=== PATIENT | male | born 1980 | race Caucasian/White ===

== ENCOUNTER → 2017-07-06 10:21 | Outpatient (CLI) | payer OTHER, SELFPAY ==
[2017-07-06 12:28] LABS: Absolute Lymphocyte Count 1.79 X10^3/ul (0.83-4.51); Absolute Neutrophil Count 5.5 X10^3/uL (2.0-7.7); Basophil# 0.03 X10^3/uL; Basophil% 0.4 % (0-1); Eosinophil# 0.05 X10^3/uL; Eosinophils% 0.6 % (0-5); Hematocrit 47.1 % (40-54); Hemoglobin 16.4 g/dl (13.0-16.5); Lymphocyte # 1.79 X10^3/ul (4.0); Lymphocyte % 22.7 % (19-41); Mean Corp Hgb Conc 34.8 g/gl (32-36); Mean Corpuscular Hgb 31.1 pg (27.0-32.0); Mean Corpuscular Volume 89.4 fL (80-94); Mean Platelet Vol. 9.9 fl (6.2-12.0); Monocyte# 0.47 X10^3/uL; Monocyte% 5.9 % (0-10); Neutrophil # 5.54 X10^3/uL (2.7-7.7); Neutrophil % 70.1 % (47-70); Platelet Count 193 K/mm3 (150-450); RBC Distribution Width CV 12.9 % (11.6-14.6); RBC Distribution Width SD 41.7 fl (35.1-43.9); Red Blood Count 5.27 M/mm3 (4.6-6.2); White Blood Count 7.9 K/mm3 (4.4-11.0)
[2017-07-06 12:36] LABS: POSITIVE COUNT NO; POSITIVE DIFFERENTIAL NO; POSITIVE MORPHOLOGY NO
[2017-07-06 12:41] LABS: Anion Gap 6 (5-15); BUN 9 mg/dL (7-18); BUN/Creat Ratio 9.6 RATIO (10-20); Chloride 108 mmol/L (98-107); Creatinine, Serum 0.94 mg/dL (0.70-1.30); EST Glomerular Filtration Rate 96 mL/min (>60); Est Glom Filt Rate - Afr Amer 116 mL/min (>60); Glucose 107 mg/dL (74-106); Potassium 4.1 mmol/L (3.5-5.1); Sodium Level 141 mmol/L (136-145); Thyroid Stim Hormone (TSH) 1.35 uIU/mL (0.358-3.74)
== END ==
PROVIDERS: Family Provider Family Medicine; PCP Family Medicine; Visit Provider Family Medicine
DX: I10 Essential (primary) hypertension (principal)
CPT/HCPCS: 36415; 80048; 84443; 85025

== ENCOUNTER → 2017-08-24 15:48 | Outpatient (CLI) | payer OTHER, SELFPAY ==
[2017-08-24 17:53] LABS: Absolute Lymphocyte Count 1.76 X10^3/ul (0.83-4.51); Absolute Neutrophil Count 6.9 X10^3/uL (2.0-7.7); Basophil# 0.03 X10^3/uL; Basophil% 0.3 % (0-1); Eosinophil# 0.03 X10^3/uL; Eosinophils% 0.3 % (0-5); Hematocrit 46.1 % (40-54); Hemoglobin 16.1 g/dl (13.0-16.5); Lymphocyte # 1.76 X10^3/ul (4.0); Mean Corp Hgb Conc 34.9 g/gl (32-36); Mean Corpuscular Hgb 31.4 pg (27.0-32.0); Mean Corpuscular Volume 89.9 fL (80-94); Mean Platelet Vol. 9.7 fl (6.2-12.0); Monocyte# 0.53 X10^3/uL; Monocyte% 5.7 % (0-10); Neutrophil # 6.89 X10^3/uL (2.7-7.7); Neutrophil % 74.4 % (47-70); Platelet Count 221 K/mm3 (150-450); RBC Distribution Width SD 42.4 fl (35.1-43.9); Red Blood Count 5.13 M/mm3 (4.6-6.2); White Blood Count 9.3 K/mm3 (4.4-11.0)
[2017-08-24 17:55] LABS: POSITIVE COUNT NO; POSITIVE DIFFERENTIAL NO; POSITIVE MORPHOLOGY NO
[2017-08-24 18:19] LABS: ALB/GLOB Ratio 0.9 RATIO (0.9-2.4); AST(SGOT) 37 U/L (15-37); Alanine Aminotransfer ALT/SGPT 63 U/L (16-61); Alkaline Phosphatase 122 U/L (45-117); Anion Gap 8 (5-15); BUN 10 mg/dL (7-18); BUN/Creat Ratio 11.6 RATIO (10-20); Calcium,Total 9.2 mg/dL (8.5-10.1); Chloride 105 mmol/L (98-107); Creatinine, Serum 0.86 mg/dL (0.70-1.30); EST Glomerular Filtration Rate 105 mL/min (>60); Est Glom Filt Rate - Afr Amer 128 mL/min (>60); Globulin 4.5 g/dL (2.2-4.2); Glucose 81 mg/dL (74-106); Potassium 3.5 mmol/L (3.5-5.1); Protein, Total 8.5 g/dL (6.4-8.2); Sodium Level 142 mmol/L (136-145)
[2017-08-24 19:03] LABS: HIV - WCH Non-Reactive (Nonreactive)
[2017-08-28 03:06] LABS: HEPATITIS B SURFACE AG Negative (Negative); Hepatitis A AB, Total Negative (Negative); Hepatitis A IgM Antibody Negative (Negative); Hepatitis B Core AB IgM Negative (Negative); Hepatitis B Core Ab Total Negative (Negative); Hepatitis C Ab <0.1 s/co ratio (0.0-0.9); QNTFERON TB Ag Minus Nil Value 0 IU/mL (.); QNTFERON TB Ag Value 0.03 IU/mL (.); QNTFERON TB Mitogen Value > 10.00 IU/mL (.); QNTFERON TB Nil Value 0.03 IU/mL (.)
[2017-08-28 08:03] LABS: Hep B Surface Antibodies Non Reactive (.); QNTIFERON TB Gold Negative (Negative)
== END ==
PROVIDERS: Family Provider Family Medicine; PCP Family Medicine; Visit Provider Dermatology
DX: L40.0 Psoriasis vulgaris (principal); Z79.899 Other long term (current) drug therapy
CPT/HCPCS: 36415; 80053; 85025; 86480; 86703; 86704; 86705; 86706; 86708; 86709; 86803; 87340

== ENCOUNTER → 2018-09-20 10:27 | Outpatient (CLI) | payer OTHER, SELFPAY ==
[2018-09-20 12:53] LABS: Anion Gap 9 (5-15); BUN 12 mg/dL (7-18); Calcium,Total 8.5 mg/dL (8.5-10.1); Chloride 105 mmol/L (98-107); Cholesterol 170 mg/dL (200); Creatinine, Serum 0.86 mg/dL (0.70-1.30); EST Glomerular Filtration Rate 105 mL/min (>60); Est Glom Filt Rate - Afr Amer 127 mL/min (>60); Glucose 101 mg/dL (74-106); High Density Lipoprotein 25 mg/dL; Potassium 3.8 mmol/L (3.5-5.1); Sodium Level 140 mmol/L (136-145); Triglycerides 219 mg/dL; Very Low Density Lipoprotein 44 mg/dL (5-40)
[2018-09-23 20:07] LABS: QNTFERON TB Mitogen Value > 10.00 IU/mL (.); QNTFERON TB Nil Value 0.02 IU/mL (.); QNTFERON TB1+ Ag Value 0.03 IU/mL (.); QNTFERON TB2+ Ag Value 0.02 IU/mL (.)
[2018-09-24 14:01] LABS: QNTIFERON TB Positive Criteria Negative (Negative)
== END ==
PROVIDERS: Family Provider Family Medicine; PCP Family Medicine; Referring Provider Dermatology; Visit Provider Dermatology
DX: L40.0 Psoriasis vulgaris (principal); Z79.899 Other long term (current) drug therapy
CPT/HCPCS: 36415; 80048; 80061; 86480

== ENCOUNTER 2019-03-16 10:32 | Inpatient (IN) | payer OTHER, SELFPAY ==
[2019-03-16 10:33] VITALS: BP 155/88; PULSE 94; RESP 17; TEMP 36.9; O2SAT 99; BMI 32.2
[2019-03-16 10:37] VITALS: BP 155/88; PULSE 94; RESP 17; TEMP 36.9; O2SAT 99
[2019-03-16 11:19] LABS: Absolute Lymphocyte Count 1.71 X10^3/uL (0.83-4.51); Absolute Neutrophil Count 9.5 X10^3/uL (2.0-7.7); Basophil# 0.06 X10^3/uL; Basophil% 0.5 % (0-1); Eosinophil# 0.06 X10^3/uL; Eosinophils% 0.5 % (0-5); Hematocrit 42.8 % (40-54); Hemoglobin 15.2 g/dL (13.0-16.5); Lymphocyte # 1.71 X10^3/ul (4.0); Lymphocyte % 14.1 % (19-41); Mean Corp Hgb Conc 35.5 g/dL (32-36); Mean Corpuscular Hgb 30.9 pg (27.0-32.0); Mean Platelet Vol. 8.8 fl (6.2-12.0); Monocyte# 0.73 X10^3/uL; NRBC Flagged by Analyzer 0 % (0-5); Neutrophil # 9.46 X10^3/uL (2.7-7.7); Neutrophil % 78.2 % (47-70); Platelet Count 191 K/mm3 (150-450); RBC Distribution Width CV 12.5 % (11.6-14.6); RBC Distribution Width SD 39.8 fl (35.1-43.9); Red Blood Count 4.92 M/mm3 (4.6-6.2); White Blood Count 12.1 K/mm3 (4.4-11.0)
[2019-03-16 11:35] LABS: Anion Gap 8 (5-15); BUN 12 mg/dL (7-18); Calcium,Total 8.7 mg/dL (8.5-10.1); Chloride 107 mmol/L (98-107); Creatinine, Serum 0.86 mg/dL (0.70-1.30); EST Glomerular Filtration Rate 105 mL/min (>60); Est Glom Filt Rate - Afr Amer 127 mL/min (>60); Estimated Creatinine Clearance 147.61 ml/min; Glucose 166 mg/dL (74-106); Potassium 3.6 mmol/L (3.5-5.1); Sodium Level 140 mmol/L (136-145)
--- NOTE | 2019-03-16 11:36 | ED.DCSUM_ITS ---
History of Present Illness Chief Complaint: Edema Detail of Chief Complaint: Swelling left elbow Informant: Patient Onset: Days - 6 days ago Context: Sudden Onset Timing: Continuous Quality: Numbness and swelling left arm and elbow initially Location: Left upper extremity involving arm, elbow and forearm Current Severity: Moderate Maximum Severity: Moderate Worsened by: Due to suppressive meds and prednisone Relieved by: Nothing Associated Symptoms: Not feeling well and increased pain Narrative: Patient is a 38-year-old [id number] male with history of psoriasis on immune suppressive meds who presents because of increased swelling and redness of his left upper extremity. There are ink ochoa which reveal significant extension from last evening. He was seen 6 days ago at urgent care and placed on prednisone for bursitis. Patient does lean on his elbows. He states the swelling started a couple of days ago. He denies a traumatic fever, murmur, SBE or IV drug use. He is on immunosuppressive meds for psoriasis. He has no other complaints. Prior similar symptoms: Yes Recent Illness/Hospitalization: Yes - Treated for bursitis - Past Medical History (1) Psoriasis Status: Acute Past Medical History - Allergies and Home Meds Allergies/Adverse Reactions: Allergies No Known Allergies Allergy (Verified 03/16/19 10:32) Primary Care Physician: Sina Rodríguez DO [Primary Care Provider] - Prior records reviewed: Yes Surgical History: noncontributory Lives: Spouse/ Significant Other, With Family Smoking Status: Never smoker Alcohol: None Drugs: None Review of Systems General: Reports: Chills. Denies: Fever, Malaise, Subjective, Sweats, Weight loss, - Eyes: Denies: Visual changes - bilaterally, Blurred Vision - bilaterally ENT: Denies: Rhinorrhea, Sore throat Cardiovascular: Denies: Chest pain, Palpitations Respiratory: Denies: Dyspnea, Cough, Dyspnea on exertion Gastrointestinal: Denies: Abdominal pain, Nausea, Vomiting, Diarrhea, Melena, Hematochezia Genitourinary: Denies: Dysuria, Hematuria, Frequency Musculoskeletal: Reports: Swelling, Extremity Pain. Denies: Myalgias, Arthralgias, Neck pain, Back pain Skin: Reports: Rash. Denies: Wounds Neurological: Denies: Headache, Weakness, Numbness Allergy: Denies: Uticaria, Swelling of the mouth Physical Exam Vital Signs/Narrative: Vital Signs Temp Pulse Resp BP Pulse Ox 03/16/19 10:37 98.5 F 94 17 155/88 H 99 03/16/19 10:33 98.5 F 94 17 155/88 H 99 Inital Vital Signs reviewed: Yes General: Well nourished, Well developed, No Acute Distress Head: Normocephalic, Atraumatic Eyes: Perrl, EOMI ENT: Moist mucous membranes, No rhinorrhea Neck: Supple, Nontender Cardiovascular: Regular rate, Regular rhythm, No murmurs Respiratory: No distress, CTA bilaterally, Chest nontender Abdomen: Soft, Nontender, Nondistended, Normal bowel sounds Back: Nontender, Normal Inspection Extremities: Tenderness, - - Swelling and fluctuance over the left olecranon bursa. There is cellulitis involving the left upper extremity from the wrist to the mid left arm. There is no axillary lymphadenopathy. Skin: Normal color, Rash - Mellitus left upper extremity Neurological: Alert, Oriented x3, Cranial nerves II-XII grossly intact, Normal Strength, Normal Sensation, Normal Gait Psychological: Normal affect, Normal Mood Diagnostic/Tx/Re-eval Laboratory Results 03/16/19 03/16/19 03/16/19 11:10 11:10 11:10 WBC 12.1 H RBC 4.92 Hgb 15.2 Hct 42.8 MCV 87.0 MCH 30.9 MCHC 35.5 RDW Std Deviation 39.8 RDW Coeff of Luan 12.5 Plt Count 191 MPV 8.8 Immature Gran % (Auto) 0.700 Neut % (Auto) 78.2 H Lymph % (Auto) 14.1 L [place] % (Auto) 6.0 Eos % (Auto) 0.5 Baso % (Auto) 0.5 Absolute Neuts (auto) 9.5 H Absolute Lymphs (auto) 1.71 Nucleated RBC % 0 Sodium 140 Potassium 3.6 Chloride 107 Carbon Dioxide 25.0 Anion Gap 8 BUN 12 Creatinine 0.86 Estim Creat Clear Calc 147.61 Est GFR (MDRD) Af Amer 127 Est GFR (MDRD) Non-Af 105 BUN/Creatinine Ratio 14.0 Glucose 166 H Lactic Acid 1.8 Calcium 8.7 White count is elevated. Lactate is normal. Patient has 2 sirs criteria therefore has sepsis. Case was discussed with hospitalist. Awaiting callback from orthopedics to make them aware of patient. - Medical Decision Making Concern patient has septic bursitis. Patient was informed that the area needs to be aspirated and if positive for infection would require incision and drainage. The area was prepped. Using a 21-gauge needle 1 cc of thick yellow purulent material was aspirated. Patient underwent formal I&D please read procedure note Because patient is on immune suppressive meds appropriate blood work was obtained including lactate and blood cultures. He was started on Zosyn and vancomycin. Because he has a septic bursitis Ortho was called and hospitalist was called for admission. Procedures Procedure(s): 1. Needle aspiration of left olecranon bursa. 2. Incision and drainage septic left olecranon bursa. Patient was prepped draped sterile manner. The area was anesthetized with 1% lidocaine by local infiltration and [address] block. Incision was made with free flow of purulent material. Blunt dissection was undertaken and more purulent material was noted and drained freely. Cavity was irrigated. Wick was placed. ED Disposition - Plan for ED Patient: Disposition: Acute Care Hospital [facility] Diagnosis: Cellulitis of left upper extremity, Septic olecranon bursitis of left elbow, Sepsis Referrals: Sina Rodríguez DO [Primary Care Provider] -
[2019-03-16 11:47] LABS: Lactic Acid 1.8 mmol/L (0.4-2.0)
[2019-03-16 11:52] VITALS: BP 155/88; PULSE 87; RESP 16; RESP 17; TEMP 36.9; O2SAT 99
--- NOTE | 2019-03-16 11:55 | NURSING ---
MED SURG JUANITA CELLULITIS LUE WITH SEPTIC BURSITIS
[2019-03-16 12:00] VITALS: BP 155/88; PULSE 87; RESP 17; TEMP 36.9; O2SAT 99
[2019-03-16] MEDS: Morphine 4 MG/ML Syringe IV (12:02)
[2019-03-16] MEDS: Ondansetron 4 MG/2 ML Vial IV (12:03)
--- NOTE | 2019-03-16 12:44 | PCM.HP.STD ---
Problem List (1) HTN (hypertension) Status: Chronic (2) Hyperglycemia Status: Acute (3) Cellulitis of left upper extremity Status: Acute (4) Sepsis Status: Acute (5) Septic olecranon bursitis of left elbow Status: Acute (6) Psoriasis Status: Acute History of Present Illness Date of Admission: 03/16/19 Chief Complaint: Left elbow and upper arm swelling for 1 week The patient is a 38 year old M with history of chronic psoriasis on Cosentyx 300 mg subcu every 4 hourly came to ER with 1 week of progressive increase in worsening of left elbow and upper arm swelling, redness, pain and tenderness. Prior to that patient went to urgent care for left olecranon swelling which was diagnosed as olecranon bursitis and sent on tapering dose of prednisone. Patient took 6 days of prednisone and only 1 dose left. Redness, swelling and pain worsened and extended proximally and distally from left upper arm to mid arm. 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 In ED, ER physician drained left olecranon abscess in about 15 to 20 cc per purulent material came out and was sent for culture. Patient also got 1 dose of vancomycin in ED. Review of system: Patient also has over sweating of bilateral armpits and groin areas and had recent reaction with a deodorant. Also has a history of axillary lymphadenitis with a small abscess/folliculitis 2 times in the past but denies history of hidradenitis suppurativa. Past Medical History Past Medical History (Chronic Problems): Chronic Problems HTN (hypertension) (Chronic) Allergies No Known Allergies Allergy (Verified 03/16/19 10:32) Home Medications: Ambulatory Orders Medication Instructions Recorded Lisinopril 5 mg PO DAILY 03/16/19 Surgical History: noncontributory Lives: Spouse/ Significant Other, With Family Smoking Status: Never smoker Alcohol: None Drugs: None - *Family History Maternal History Items: - - Prediabetes Paternal History Items: - - Arthritis. Review of Systems Constitutional: Denies: Chills, Fever, Weight Change HEENT: Denies: Head Aches, Sinus Congestion, Sinus Drainage Cardiovascular: Denies: Chest Pain, Palpitations Respiratory: Denies: Cough, Shortness of breath at rest, Sputum production Gastrointestinal: Denies: Abdominal Pain, Nausea, Vomiting Genitourinary: Denies: Dysuria, Frequency, Hematuria Musculoskeletal: Reports: Arm Pain, Hand Pain, Joint Pain, Joint stiffness, Joint swelling - Left elbow, Joint Tenderness Skin: Denies: Rash, Wounds Neurological: Denies: Numbness, Tingling, Focal weakness Psychiatric: Denies: Anxiety, Depression, Homicidal Ideations, Suicidal Ideations Hematologic/ Lymphatic: Denies: Easy Bruising, Easy Bleeding VTE Information - Inpt Only VTE Present on Admission: No VTE Mechan Device Prophylaxis: None VTE Pharm Prophylaxis ordered?: No Reason prophylaxis not ordered:: Procedure Not Indicated Patient Problems: Active and Suspected Problems Cellulitis of left upper extremity (Acute) Septic olecranon bursitis of left elbow (Acute) Sepsis (Acute) Hyperglycemia (Acute) - Physical Exam Vitals/I&O's: Vital Signs Temp Pulse Resp BP Pulse Ox 98.5 F 87 17 155/88 H 99 03/16/19 12:00 03/16/19 12:00 03/16/19 12:00 03/16/19 12:00 03/16/19 12:00 Oxygen Delivery Method Room Air Weight: 279 lb Body Mass Index (BMI) 32.2 General: Alert, Oriented x3, Cooperative HEENT: Atraumatic, PERRLA, EOMI, Normocephalic Oral: Moist Mucosa, No Gingival or Mucosal Lesions/ Ulcerations Neck: Supple, No JVD, Negative Carotid Bruits, Negative Hepatojugular Reflux Lungs: Clear to auscultation, Normal air movement, No rhonchi, No wheeze Cardiovascular: Regular rate, Regular Rhythm, Normal S1, Normal S2, No murmurs Abdomen: Bowel Sounds Present, Soft, Non Tender, Non-Distended Extremities: No edema, Capillary Refill Less than 3 Seconds Skin: Ulcer/ Wound - Left olecranon incision and drainage., Rash Present - Erythema, swelling and redness from left forearm to left upper arm. Musculoskeletal: No Tenderness to Palpation of Joints or Extremities Lymphatic: No Cervical, Supraclavicular, or Inguinal Adenopathy, - - Bilateral axillary area has redness probably secondary to deodorant reaction Neurological: Cranial nerves II-XII grossly intact, Deep Tendon Reflexes 2+/4 and Symmetrical, Neuro grossly intact Psych/Mental Status: Normal Affect, Appropriate Microbiology Past 72 Hours 11/29/19 11:00 Wound Abcess - Elbow Gram Stain - Preliminary Laboratory Results 03/16/19 11:10: WBC 12.1 H, RBC 4.92, Hgb 15.2, Hct 42.8, MCV 87.0, MCH 30.9, MCHC 35.5, RDW Std Deviation 39.8, RDW Coeff of Luan 12.5, Plt Count 191, MPV 8.8, Immature Gran % (Auto) 0.700, Neut % (Auto) 78.2 H, Lymph % (Auto) 14.1 L, [place] % (Auto) 6.0, Eos % (Auto) 0.5, Baso % (Auto) 0.5, Absolute Neuts (auto) 9.5 H, Absolute Lymphs (auto) 1.71, Nucleated RBC % 0 03/16/19 11:10: Sodium 140, Potassium 3.6, Chloride 107, Carbon Dioxide 25.0, Anion Gap 8, BUN 12, Creatinine 0.86, Estim Creat Clear Calc 147.61, Est GFR (MDRD) Af Amer 127, Est GFR (MDRD) Non-Af 105, BUN/Creatinine Ratio 14.0, Glucose 166 H, Calcium 8.7 03/16/19 11:10: Lactic Acid 1.8 Current Medications Vancomycin HCl 2,000 mg/ (Sodium Chloride) 540 mls @ 250 mls/hr IV X1 ONE Stop: 03/16/19 13:39 Last Admin: 03/16/19 11:52 Dose: 250 mls/hr Documented by: Lisinopril (Zestril) 5 mg PO DAILY GIANCARLO Assessment/Plan All Active Problems Psoriasis (Acute) Cellulitis of left upper extremity (Acute) Septic olecranon bursitis of left elbow (Acute) Sepsis (Acute) Hyperglycemia (Acute) There is a 38 gentleman admitted with left elbow swelling, redness and pain consistent with left elbow olecranon abscess status post incision and drainage 1. Left olecranon abscess status post incision and drainage: Patient is being admitted on [facility] floor. Patient was seen by ID. Patient got vancomycin in ER and will continue it. Ceftriaxone added for gram-negative coverage. Follow-up blood culture and wound abscess culture and MRSA and MRSA nasal screen. Orthopedic surgeon Dr. Romo has been paged from ER physician and didn't call back yet. 2. HTN: Mild elevated. Lisinopril dose increased to 10 mg daily. 3. Psoriasis on immunosuppressant Cosentyx: patches has improved and decreased in size on cosentyx. It is every 4 week so patient doesn't need during admission. 4. Hyperglycemia secondary to steroid: Patient finished without prednisone tapering dose. A1c tomorrow a.m. DVT prophylaxis: Low risk early ambulation encouraged. Code Visit Inpatient E&M: 67905 Init Hosp L2
[2019-03-16 12:47] VITALS: BMI 32.2
--- NOTE | 2019-03-16 12:56 | CON.PCM_ITS ---
Reason for Consult: elbow infection Consulted by: Dr. Gates History of Present Illness: The patient is a 38 year old M with psoriasis on Cosentyx, presented with one week of L elbow progressive pain, swelling, redness. No fever, no drainage. No known trauma to the site. No prior h/o abscess or MRSA infection. Pain was mild, aching, worse with movement. He went to urgent care a week ago, given course of prednisone for bursitis. Sx worsened. Came to ED this AM, I&D done with heavy pus drained. Started on vanc/ceftriaxone, redness starting to improve. Full ROS performed and neg except as noted above. - Medical History Past Medical History (Chronic Problems): Chronic Problems HTN (hypertension) (Chronic) Surgical History: finger surgery Allergies/Adverse Reactions: Allergies No Known Allergies Allergy (Verified 03/16/19 10:32) Home Medications: Ambulatory Orders Medication Instructions Recorded Lisinopril 5 mg PO DAILY 03/16/19 Secukinumab [Cosentyx Pen (2 Pens)] 300 mg SQ 03/16/19 - Social History Tobacco Use: non-smoker Vital Signs Temp Pulse Resp BP Pulse Ox 98.5 F 87 17 155/88 H 99 03/16/19 12:00 03/16/19 12:00 03/16/19 12:00 03/16/19 12:00 03/16/19 12:00 Oxygen Delivery Method Room Air Weight: 126.552 kg Body Mass Index (BMI) 32.2 Microbiology Past 72 Hours 03/16/19 11:00 Gram Stain - Preliminary Wound Abcess - Elbow Laboratory Tests Past 24 Hrs 03/16/19 03/16/19 03/16/19 11:10 11:10 11:10 WBC 12.1 H RBC 4.92 Hgb 15.2 Hct 42.8 MCV 87.0 MCH 30.9 MCHC 35.5 RDW Std Deviation 39.8 RDW Coeff of Luan 12.5 Plt Count 191 MPV 8.8 Immature Gran % (Auto) 0.700 Neut % (Auto) 78.2 H Lymph % (Auto) 14.1 L [place] % (Auto) 6.0 Eos % (Auto) 0.5 Baso % (Auto) 0.5 Absolute Neuts (auto) 9.5 H Absolute Lymphs (auto) 1.71 Nucleated RBC % 0 Sodium 140 Potassium 3.6 Chloride 107 Carbon Dioxide 25.0 Anion Gap 8 BUN 12 Creatinine 0.86 Estim Creat Clear Calc 147.61 Est GFR (MDRD) Af Amer 127 Est GFR (MDRD) Non-Af 105 BUN/Creatinine Ratio 14.0 Glucose 166 H Lactic Acid 1.8 Calcium 8.7 - Other Studies Radiology: [] reviewed Other Studies: [] Route of nutrition/ use of supplements: [] Nutritional Intake: [] IV Site: [] Patel Catheter: [] - Physical Exam General: Alert, Oriented x3, Cooperative, No apparent distress HEENT: Atraumatic, PERRLA, EOMI Neck: Supple, No Nodes Lungs: Clear to auscultation, Normal air movement Cardiovascular: Regular rate, Regular Rhythm, No murmurs Abdomen: Soft, Non Tender, Non-Distended Extremities: - - no leg edema Skin: Ulcer/ Wound - L elbow wrapped s/p I&D., - - scattered psoriasis plaques IV Site: Peripheral, without redness Neurological: Cranial nerves II-XII grossly intact - Assessment/Plan Antibiotics: [] Assessment/Plan: [] Active and Suspected Problems Cellulitis of left upper extremity (Acute) Septic olecranon bursitis of left elbow (Acute) Sepsis (Acute) Hyperglycemia (Acute) L elbow GPC septic bursitis - I&D done in ED, cx pending. On vanc/ceftriaxone. Recommend ortho eval. H/o psoriasis, on Cosentyx. Will follow, thank you, d/w Dr. Gates.
[2019-03-16 13:06] VITALS: BP 131/82; PULSE 96; RESP 18; TEMP 37.1; O2SAT 95
--- NOTE | 2019-03-16 13:32 | PCM.RX.CS ---
Consult Pharmacy has been consulted to manage selected antiobiotic: Vancomycin Type of Consult: New start Suspected Infection: Other - septic olecranon bursitis Prior Doses of Antibiotics Received/Current Regimen: VANCOMYCIN 2000MG IV X1 DOSE GIVEN IN ER 03/16 @ 1152 Labs: Sodium 140 mmol/L (136-145) 03/16/19 11:10 Potassium 3.6 mmol/L (3.5-5.1) 03/16/19 11:10 Chloride 107 mmol/L (98-107) 03/16/19 11:10 Carbon Dioxide 25.0 mmol/L (21.0-32.0) 03/16/19 11:10 Anion Gap 8 (5-15) 03/16/19 11:10 BUN 12 mg/dL (7-18) 03/16/19 11:10 Creatinine 0.86 mg/dL (0.70-1.30) 03/16/19 11:10 Est GFR (MDRD) Af Amer 127 mL/min (>60) 03/16/19 11:10 Est GFR (MDRD) Non-Af 105 mL/min (>60) 03/16/19 11:10 BUN/Creatinine Ratio 14.0 RATIO (10-20) 03/16/19 11:10 Glucose 166 mg/dL (74-106) H 03/16/19 11:10 Microbiology: Microbiology 03/16/19 11:00 Wound Abcess - Elbow Gram Stain - Preliminary Weight used for dosin kg Estimated Creatinine Clearance: 170 Goal Trough: 15-20 mcg/mL Pharmacy Plan for Drug Dosin. Will dose new vancomycin at 1500mg IV Q8H per policy for trough of 15-20 2. Will start tonight at 2000 3. Trough will be drawn before the 4th dose of new regimen Pharmacy Service will continue to monitor and adjust dosing as required. Labs to be done on [date and time ordered]: 03/17/19 @ 1930
[2019-03-16] MEDS: 0.9% Normal Saline 1,000 ML 100 ML IV (14:16)
[2019-03-16] MEDS: Ibuprofen 400 MG Tablet PO (14:19)
[2019-03-16] MEDS: oxyCODONE 5 MG Tablet PO (15:21)
[2019-03-16] MEDS: Ceftriaxone 1 GM/50 ML BAG IV (15:43)
[2019-03-16 16:56] LABS: M R Staph aureus DNA By PCR Negative (Negative); Probe Check PASS; Specimen Processing Control PASS; Staph aureus DNA By PCR POSITIVE (Negative)
[2019-03-16 17:04] LABS: M R Staph aureus DNA By PCR Negative (Negative); Probe Check PASS; Specimen Processing Control PASS
[2019-03-16 18:08] VITALS: BP 126/80; PULSE 105; RESP 18; TEMP 37.1; O2SAT 92
[2019-03-17 00:08] VITALS: BP 139/87; PULSE 92; RESP 18; TEMP 37.6; O2SAT 95
[2019-03-17] MEDS: Ibuprofen 400 MG Tablet PO ×2 (02:19→20:00)
[2019-03-17 04:06] VITALS: BP 156/92; PULSE 88; RESP 16; TEMP 36.7; O2SAT 100
[2019-03-17 06:47] LABS: Absolute Neutrophil Count 8.5 X10^3/uL (2.0-7.7); Basophil# 0.05 X10^3/uL; Basophil% 0.4 % (0-1); Eosinophil# 0.08 X10^3/uL; Eosinophils% 0.7 % (0-5); Hematocrit 39.9 % (40-54); Hemoglobin 13.8 g/dL (13.0-16.5); Lymphocyte % 17.5 % (19-41); Mean Corp Hgb Conc 34.6 g/dL (32-36); Mean Corpuscular Hgb 30.9 pg (27.0-32.0); Mean Corpuscular Volume 89.5 fL (80-94); Mean Platelet Vol. 8.8 fl (6.2-12.0); Monocyte# 0.76 X10^3/uL; Monocyte% 6.6 % (0-10); NRBC Flagged by Analyzer 0 % (0-5); Neutrophil # 8.45 X10^3/uL (2.7-7.7); Neutrophil % 73.9 % (47-70); Platelet Count 177 K/mm3 (150-450); RBC Distribution Width CV 12.6 % (11.6-14.6); RBC Distribution Width SD 41.7 fl (35.1-43.9); Red Blood Count 4.46 M/mm3 (4.6-6.2); White Blood Count 11.4 K/mm3 (4.4-11.0)
[2019-03-17 07:09] LABS: Anion Gap 9 (5-15); BUN 9 mg/dL (7-18); BUN/Creat Ratio 12.3 RATIO (10-20); Calcium,Total 8.5 mg/dL (8.5-10.1); Chloride 108 mmol/L (98-107); Cholesterol 142 mg/dL (200); Creatinine, Serum 0.73 mg/dL (0.70-1.30); EST Glomerular Filtration Rate 126 mL/min (>60); Est Glom Filt Rate - Afr Amer 153 mL/min (>60); Glucose 125 mg/dL (74-106); High Density Lipoprotein 24 mg/dL; Potassium 3.7 mmol/L (3.5-5.1); Sodium Level 141 mmol/L (136-145); Triglycerides 181 mg/dL; Very Low Density Lipoprotein 36 mg/dL (5-40)
[2019-03-17 07:28] LABS: Hemoglobin A1c 6.8 % (4.2-6.3)
[2019-03-17] MEDS: 0.9% Normal Saline 1,000 ML 30 ML IV (08:01)
[2019-03-17] MEDS: oxyCODONE 5 MG Tablet PO (08:01)
--- NOTE | 2019-03-17 08:03 | PCM.CONS.GEN ---
Reason for Consult Date of Consultation: 03/17/19 Reason for Consultation: left elbow septic bursitis History of Present Illness: The patient is a 38 year old M history of psoriasis on Cosentyx began noticing redness swelling left elbow on the proceeded to urgent care the following day was started on prednisone and symptoms worsened he did proceed to the ER yesterday the did have I&D and packing performed by ER doc was started on IV antibiotics cultures were taken he has responded dramatically since initiation of antibiotics from demarcation by ER doc of erythema 75% improved. No prior story of bursitis he does note that he has psoriatic patches that are itchy and recently switched body washes which causes significant itching in his armpit and he was scratching at them raw. Really denies fevers chills malaise other joint pain other infections Past Medical History Past Medical History (Chronic Problems): Chronic Problems HTN (hypertension) (Chronic) Allergies No Known Allergies Allergy (Verified 03/16/19 10:32) Home Medications: Ambulatory Orders Medication Instructions Recorded Lisinopril 5 mg PO DAILY 03/16/19 Secukinumab [Cosentyx Pen (2 Pens)] 300 mg SQ 03/16/19 Surgical History: noncontributory Lives: Spouse/ Significant Other, With Family Smoking Status: Former smoker Tobacco Use: Cigars, Vapor Alcohol: None Drugs: None - *Family History Maternal History Items: - - Prediabetes Paternal History Items: - - Arthritis. Patient Problems: Active and Suspected Problems Cellulitis of left upper extremity (Acute) Septic olecranon bursitis of left elbow (Acute) Sepsis (Acute) Hyperglycemia (Acute) Subjective: Complain of pain left elbow - Physical Exam Vitals/I&O's: Vital Signs Temp Pulse Resp BP Pulse Ox 98.1 F 88 16 156/92 H 100 03/17/19 04:06 03/17/19 04:06 03/17/19 04:06 03/17/19 04:06 03/17/19 04:06 Oxygen Delivery Method Room Air Weight: 279 lb Body Mass Index (BMI) 32.2 Intake and Output for Last 24 Hours 03/15/19 03/16/19 03/17/19 23:59 23:59 23:59 Intake Total 1914. / 246.00 1944 Balance 1915.00 / 2465.00 1944 General: Alert, Oriented x3, Cooperative, No apparent distress Extremities: - - Left upper extremity with demarcation of prior erythema much improved erythema more isolated about the elbow small incision from the ER with wick placed maceration about the skin of over the olecranon area sanguinous dressing drainage. We will do express any purulence. No other areas of fluctuance in the arm. Elbow range of motion limited however an arc of motion no joint pain able to flex and extend the wrist and fingers discomfort as well as shoulder Microbiology Past 72 Hours 03/16/19 11:00 Wound Abcess - Elbow Gram Stain - Preliminary Laboratory Results 03/16/19 11:10: WBC 12.1 H, RBC 4.92, Hgb 15.2, Hct 42.8, MCV 87.0, MCH 30.9, MCHC 35.5, RDW Std Deviation 39.8, RDW Coeff of Luan 12.5, Plt Count 191, MPV 8.8, Immature Gran % (Auto) 0.700, Neut % (Auto) 78.2 H, Lymph % (Auto) 14.1 L, [place] % (Auto) 6.0, Eos % (Auto) 0.5, Baso % (Auto) 0.5, Absolute Neuts (auto) 9.5 H, Absolute Lymphs (auto) 1.71, Nucleated RBC % 0 03/16/19 11:10: Sodium 140, Potassium 3.6, Chloride 107, Carbon Dioxide 25.0, Anion Gap 8, BUN 12, Creatinine 0.86, Estim Creat Clear Calc 147.61, Est GFR (MDRD) Af Amer 127, Est GFR (MDRD) Non-Af 105, BUN/Creatinine Ratio 14.0, Glucose 166 H, Calcium 8.7 03/16/19 11:10: Lactic Acid 1.8 03/16/19 15:35: MRSA (PCR) Negative 03/16/19 15:35: S.aureus Protein A PCR POSITIVE H, MRSA (PCR) Negative 03/17/19 06:24: WBC 11.4 H, RBC 4.46 L, Hgb 13.8, Hct 39.9 L, MCV 89.5, MCH 30.9, MCHC 34.6, RDW Std Deviation 41.7, RDW Coeff of Luan 12.6, Plt Count 177, MPV 8.8, Immature Gran % (Auto) 0.900, Neut % (Auto) 73.9 H, Lymph % (Auto) 17.5 L, [place] % (Auto) 6.6, Eos % (Auto) 0.7, Baso % (Auto) 0.4, Absolute Neuts (auto) 8.5 H, Absolute Lymphs (auto) 2.00, Nucleated RBC % 0 03/17/19 06:24: Sodium 141, Potassium 3.7, Chloride 108 H, Carbon Dioxide 24.0, Anion Gap 9, BUN 9, Creatinine 0.73, Estim Creat Clear Calc 173.90, Est GFR (MDRD) Af Amer 153, Est GFR (MDRD) Non-Af 126, BUN/Creatinine Ratio 12.3, Glucose 125 H, Calcium 8.5, Triglycerides 181, Cholesterol 142, LDL Cholesterol 82, VLDL Cholesterol 36, HDL Cholesterol 24 L 03/17/19 06:24: Hemoglobin A1c 6.8 H Current Medications Acetaminophen (Tylenol) 650 mg PO Q6H PRN PRN PRN Reason: Pain Score 1-3/Temp > 100.7 F Al Hydroxide/Mg Hydroxide (Mylanta Ii) 30 ml PO Q6H PRN PRN PRN Reason: Gastric Burning Albuterol Sulfate (Ventolin Aerosols) 2.5 mg INHALATION Q2H PRN PRN PRN Reason: Shortness of Breath/Wheezing Hydromorphone HCl (Dilaudid Inj) 1 mg IV Q4H PRN PRN PRN Reason: Pain Score 6-10/10 Ceftriaxone Sodium (Rocephin) 1 gm in 50 mls @ 100 mls/hr IV Q24 GIANCARLO Last Infusion: 03/16/19 16:13 Dose: Infused Documented by: Vancomycin IV Pharmacy to Dose (1 ea/ Sodium Chloride) 500 mls @ 250 mls/hr IV DAILY GIANCARLO; Protocol Sodium Chloride () 250 mls @ 15 mls/hr IV .[id number] PRN PRN Reason: Saline Flush Vancomycin HCl 1,500 mg/ (Sodium Chloride) 530 mls @ 250 mls/hr IV Q8H [facility] Last Infusion: 03/17/19 06:04 Dose: Infused Documented by: Ibuprofen (Motrin) 400 mg PO Q4H PRN PRN PRN Reason: Pain Score 1-3/Temp > 100.7 F Last Admin: 03/17/19 02:19 Dose: 400 mg Documented by: Lisinopril (Zestril) 10 mg PO DAILY GIANCARLO Last Admin: 03/16/19 14:15 Dose: Not Given Documented by: Ondansetron HCl (Zofran) 4 mg IV Q8H PRN PRN PRN Reason: NAUSEA/VOMITING Oxycodone HCl (Oxyir) 5 mg PO Q4H PRN PRN PRN Reason: Pain Score 4-5/10 Last Admin: 03/17/19 08:01 Dose: 5 mg Documented by: Senna/Docusate Sodium (Senokot-S, Jelena-Colace) 2 tablet PO BID PRN PRN PRN Reason: Constipation Sodium Chloride () 10 - 40 ml IV UD PRN PRN Reason: SALINE FLUSH Assessment/Plan All Active Problems Psoriasis (Acute) Cellulitis of left upper extremity (Acute) Septic olecranon bursitis of left elbow (Acute) Sepsis (Acute) Hyperglycemia (Acute) Septic bursitis left elbow status post I&D by ER physician with packing Immuno suppression from Cosentyx on IV antibiotics managed by infectious disease awaiting sensitivities from ER culture Appears to be responding well to antibiotic at this point however may need extended course with immunosuppression Will pull packing tomorrow start daily dressing changes and continue to monitor encourage ROM
[2019-03-17 08:25] VITALS: BP 130/83; PULSE 78; RESP 16; TEMP 36.8; O2SAT 96
[2019-03-17 08:30] VITALS: O2SAT 96
[2019-03-17] MEDS: Ceftriaxone 1 GM/50 ML BAG IV (09:59)
[2019-03-17] MEDS: Lisinopril 10 MG Tablet PO (10:00)
--- NOTE | 2019-03-17 10:35 | CM.UR ---
RN CM Assessment Introduced role of RN CM to patient. Patient is alert and able to participate in RN CM Assessment. Care providers, pharmacy, and demographics verified. No family at bedside. Presentation: Left elbow swelling Admit Dx: Septic bursitis left elbow. I&D done in ER Re-Admit: no Barriers/Issues: none PCP: Marcos Specialists: [facility] --Dr. Shaw Preferred Pharmacy: [facility] Insurance: [employer] Rx Benefit: Yes LNOK: , kristin LW/HPOA: None. Interested in doing but states will probably not do it while here. Living Arrangements: 1 story home with 2 steps to enter. Average 10-15 steps to basement. No accessibility concerns. ADL?s: Independent with ADLs. Transportation: Self DME: CPAP HHC: None SNF: None Goal: Home DC PLAN: Home, NN anticipated. Anya Chang RN, CCM.
--- NOTE | 2019-03-17 11:50 | PCM.PN.HOSP ---
Patient Problems: Active and Suspected Problems Cellulitis of left upper extremity (Acute) Septic olecranon bursitis of left elbow (Acute) Sepsis (Acute) Hyperglycemia (Acute) Reason for Visit: Follow-up for left olecranon septic bursitis Subjective: Patient has improvement of erythema, pain around left elbow and proximal and distal. Demarcation of redness has improved. T-max 99.7 Fahrenheit at midnight. Vitals/I&O's: Vital Signs Temp Pulse Resp BP Pulse Ox 98.2 F 78 16 130/83 H 96 03/17/19 08:25 03/17/19 08:25 03/17/19 08:25 03/17/19 08:25 03/17/19 08:25 Oxygen Delivery Method Room Air Weight: 279 lb Body Mass Index (BMI) 32.2 Intake and Output for Last 24 Hours 03/15/19 03/16/19 03/17/19 23:59 23:59 23:59 Intake Total 1914. / 2464.1944 Balance / 2464.1944 General: Alert, Oriented x3, Cooperative HEENT: Atraumatic, PERRLA, EOMI, Normocephalic Neck: Supple, No JVD, Negative Carotid Bruits Lungs: Clear to auscultation, Normal air movement, No rhonchi, No wheeze, No rales Cardiovascular: Regular rate, Regular Rhythm, Normal S1, Normal S2, No murmurs Abdomen: Bowel Sounds Present, Soft, Non Tender, Non-Distended Extremities: Capillary Refill Less than 3 Seconds, Edema - Mild inflammatory edema over left upper extremity Skin: Ulcer/ Wound - Incision and drainage done at left olecranon bursa. Wound packing by ER physician, Rash Present - Psoriatic patch, localized over lower extremity, scalp and upper extremity. Improving. Cellulitis with erythema, induration and tenderness improving. Musculoskeletal: No Tenderness to Palpation of Joints or Extremities Neurological: Cranial nerves II-XII grossly intact Psych/Mental Status: Normal Affect, Appropriate Microbiology Past 72 Hours 03/16/19 11:00 Wound Abcess - Elbow Gram Stain - Final 03/16/19 11:00 Wound Abcess - Elbow Wound Culture - Preliminary Staphylococcus aureus Laboratory Results 03/16/19 15:35: MRSA (PCR) Negative 03/16/19 15:35: S.aureus Protein A PCR POSITIVE H, MRSA (PCR) Negative 03/17/19 06:24: WBC 11.4 H, RBC 4.46 L, Hgb 13.8, Hct 39.9 L, MCV 89.5, MCH 30.9, MCHC 34.6, RDW Std Deviation 41.7, RDW Coeff of Luan 12.6, Plt Count 177, MPV 8.8, Immature Gran % (Auto) 0.900, Neut % (Auto) 73.9 H, Lymph % (Auto) 17.5 L, [place] % (Auto) 6.6, Eos % (Auto) 0.7, Baso % (Auto) 0.4, Absolute Neuts (auto) 8.5 H, Absolute Lymphs (auto) 2.00, Nucleated RBC % 0 03/17/19 06:24: Sodium 141, Potassium 3.7, Chloride 108 H, Carbon Dioxide 24.0, Anion Gap 9, BUN 9, Creatinine 0.73, Estim Creat Clear Calc 173.90, Est GFR (MDRD) Af Amer 153, Est GFR (MDRD) Non-Af 126, BUN/Creatinine Ratio 12.3, Glucose 125 H, Calcium 8.5, Triglycerides 181, Cholesterol 142, LDL Cholesterol 82, VLDL Cholesterol 36, HDL Cholesterol 24 L 03/17/19 06:24: Hemoglobin A1c 6.8 H Current Medications Acetaminophen (Tylenol) 650 mg PO Q6H PRN PRN PRN Reason: Pain Score 1-3/Temp > 100.7 F Al Hydroxide/Mg Hydroxide (Mylanta Ii) 30 ml PO Q6H PRN PRN PRN Reason: Gastric Burning Albuterol Sulfate (Ventolin Aerosols) 2.5 mg INHALATION Q2H PRN PRN PRN Reason: Shortness of Breath/Wheezing Hydromorphone HCl (Dilaudid Inj) 1 mg IV Q4H PRN PRN PRN Reason: Pain Score 6-10/10 Ceftriaxone Sodium (Rocephin) 1 gm in 50 mls @ 100 mls/hr IV Q24 [facility] Last Admin: 03/17/19 09:59 Dose: 100 mls/hr Documented by: Sodium Chloride () 250 mls @ 15 mls/hr IV .[id number] PRN PRN Reason: Saline Flush Vancomycin HCl 1,500 mg/ (Sodium Chloride) 530 mls @ 250 mls/hr IV Q8H [facility] Last Infusion: 03/17/19 06:04 Dose: Infused Documented by: Vancomycin IV Pharmacy to Dose (1 ea/ Sodium Chloride) 500 mls @ 250 mls/hr IV PRN PRN; Protocol Ibuprofen (Motrin) 400 mg PO Q4H PRN PRN PRN Reason: Pain Score 1-3/Temp > 100.7 F Last Admin: 03/17/19 02:19 Dose: 400 mg Documented by: Lisinopril (Zestril) 10 mg PO DAILY [facility] Last Admin: 03/17/19 10:00 Dose: 10 mg Documented by: Ondansetron HCl (Zofran) 4 mg IV Q8H PRN PRN PRN Reason: NAUSEA/VOMITING Oxycodone HCl (Oxyir) 5 mg PO Q4H PRN PRN PRN Reason: Pain Score 4-5/10 Last Admin: 03/17/19 08:01 Dose: 5 mg Documented by: Senna/Docusate Sodium (Senokot-S, Jelena-Colace) 2 tablet PO BID PRN PRN PRN Reason: Constipation Sodium Chloride () 10 - 40 ml IV UD PRN PRN Reason: SALINE FLUSH STROKE Vital Signs/Narrative: Vital Signs Temp Pulse Resp BP Pulse Ox 03/17/19 08:25 98.2 F 78 16 130/83 H 96 Medical Necessity - Tobacco Use Smoking Status: Former smoker Tobacco Use: Cigars, Vapor Assessment/Plan All Active Problems Psoriasis (Acute) Cellulitis of left upper extremity (Acute) Septic olecranon bursitis of left elbow (Acute) Sepsis (Acute) Hyperglycemia (Acute) There is a 38 gentleman admitted with left elbow swelling, redness and pain consistent with left elbow olecranon septic bursitis/abscess status post incision and drainage 1. Left olecranon septic bursitis/abscess status post incision and drainage: [facility] Patient was seen by ID. Patient got vancomycin in ER and will continue it. Ceftriaxone added for gram-negative coverage. Follow-up blood culture and wound abscess culture and MRSA and MRSA nasal screen. 03/17/19: Orthopedic surgeon consultation reviewed and appreciated. Plan is to change wound dressing tomorrow and evaluate the wound. Continue antibiotic as patient is responding well. Preliminary Gram stain of wound culture shows a staph aureus 3+. MRSA nasal screen negative. 2. HTN: Mild elevated. Lisinopril dose increased to 10 mg daily. 03/17: Patient blood pressure is improved. BP 130/83 continue lisinopril. 3. Psoriasis on immunosuppressant Cosentyx: patches has improved and decreased in size on cosentyx. It is every 4 week so patient doesn't need during admission. 4. New onset diabetes type 2 with hyperglycemia probably exacerbated by prednisone: Patient finished without prednisone tapering dose. 03/17: A1c 6.8 suggestive of diabetes mellitus type 2. Started on glipizide XL 5 mg daily. Will need metformin once infection is resolved DVT prophylaxis: Low risk early ambulation encouraged. Code Visit Inpatient E&M: 22683 Subs Hosp L2
[2019-03-17] MEDS: glipiZIDE XL 5 MG Tablet PO (12:45)
[2019-03-17 13:55] VITALS: BP 138/82; PULSE 97; RESP 16; TEMP 37.2; O2SAT 100
[2019-03-17 17:36] LABS: Bedside Glucose 111 mg/dL (70-110)
[2019-03-17 20:21] LABS: Vancomycin, Trough Level 11.4 ug/mL (5.0-15.0)
--- NOTE | 2019-03-17 21:39 | PCM.RX.CS ---
Consult Pharmacy has been consulted to manage selected antiobiotic: Vancomycin Type of Consult: Follow-up Suspected Infection: Skin/Soft tissue Prior Doses of Antibiotics Received/Current Regimen: Medications Vancomycin HCl 2,000 mg/ (Sodium Chloride) 540 mls @ 250 mls/hr IV Q8H [facility] Discontinued Medications Vancomycin HCl 1,500 mg/ (Sodium Chloride) 530 mls @ 250 mls/hr IV Q8H [facility] Last Admin: 03/17/19 20:53 Dose: 250 mls/hr Labs: Sodium 141 mmol/L (136-145) 03/17/19 06:24 Potassium 3.7 mmol/L (3.5-5.1) 03/17/19 06:24 Chloride 108 mmol/L (98-107) H 03/17/19 06:24 Carbon Dioxide 24.0 mmol/L (21.0-32.0) 03/17/19 06:24 Anion Gap 9 (5-15) 03/17/19 06:24 BUN 9 mg/dL (7-18) 03/17/19 06:24 Creatinine 0.73 mg/dL (0.70-1.30) 03/17/19 06:24 Est GFR (MDRD) Af Amer 153 mL/min (>60) 03/17/19 06:24 Est GFR (MDRD) Non-Af 126 mL/min (>60) 03/17/19 06:24 BUN/Creatinine Ratio 12.3 RATIO (10-20) 03/17/19 06:24 Glucose 125 mg/dL (74-106) H 03/17/19 06:24 Vancomycin Trough 11.4 ug/mL (5.0-15.0) 03/17/19 19:50 Microbiology: Microbiology 03/16/19 11:00 Wound Abcess - Elbow Gram Stain - Final 03/16/19 11:00 Wound Abcess - Elbow Wound Culture - Preliminary Staphylococcus aureus Weight used for dosin.5 kg Estimated Creatinine Clearance: 200 Goal Trough: 15-20 mcg/mL Pharmacy Plan for Drug Dosing: Trough drawn 03/17/19 @1950 was low at 11.4. Will increase dose to 2000mg q8h and re-draw trough prior to 4th dose at this new dose. Pharmacy Service will continue to monitor and adjust dosing as required. Follow-Up Labs: Trough Vancomycin Labs to be done on [date and time ordered]: 03/19/19 @0435
[2019-03-17 22:00] VITALS: BP 184/83; PULSE 107; RESP 18; TEMP 37.2; O2SAT 97
[2019-03-17] MEDS: MELATONIN 3 MG TABLET 6 MG PO (22:41)
[2019-03-17] MEDS: cloNIDine HCl 0.1 MG Tablet PO (22:41)
[2019-03-17 22:51] LABS: Bedside Glucose 98 mg/dL (70-110)
[2019-03-18 02:00] VITALS: BP 152/84; PULSE 82; RESP 18; TEMP 36.9; O2SAT 98
[2019-03-18 06:17] LABS: Absolute Lymphocyte Count 1.61 X10^3/uL (0.83-4.51); Absolute Neutrophil Count 6.6 X10^3/uL (2.0-7.7); Basophil# 0.05 X10^3/uL; Basophil% 0.6 % (0-1); Eosinophil# 0.11 X10^3/uL; Eosinophils% 1.2 % (0-5); Hematocrit 44.3 % (40-54); Hemoglobin 15.1 g/dL (13.0-16.5); Lymphocyte # 1.61 X10^3/ul (4.0); Lymphocyte % 17.7 % (19-41); Mean Corp Hgb Conc 34.1 g/dL (32-36); Mean Corpuscular Hgb 30.6 pg (27.0-32.0); Mean Corpuscular Volume 89.7 fL (80-94); Mean Platelet Vol. 8.6 fl (6.2-12.0); Monocyte# 0.62 X10^3/uL; Monocyte% 6.8 % (0-10); NRBC Flagged by Analyzer 0 % (0-5); Neutrophil # 6.59 X10^3/uL (2.7-7.7); Neutrophil % 72.6 % (47-70); Platelet Count 197 K/mm3 (150-450); RBC Distribution Width CV 12.3 % (11.6-14.6); RBC Distribution Width SD 40.4 fl (35.1-43.9); Red Blood Count 4.94 M/mm3 (4.6-6.2); White Blood Count 9.1 K/mm3 (4.4-11.0)
[2019-03-18] MEDS: oxyCODONE 5 MG Tablet PO ×2 (07:45→16:32)
[2019-03-18 08:00] VITALS: BP 147/94; PULSE 86; RESP 18; TEMP 36.7; O2SAT 99
[2019-03-18] MEDS: Lisinopril 10 MG Tablet PO (08:01)
[2019-03-18] MEDS: glipiZIDE XL 5 MG Tablet PO (08:01)
[2019-03-18 08:41] LABS: Bedside Glucose 107 mg/dL (70-110)
--- NOTE | 2019-03-18 10:06 | PN.ORTHO_ITS ---
Patient Problems: Active and Suspected Problems Cellulitis of left upper extremity (Acute) Septic olecranon bursitis of left elbow (Acute) Sepsis (Acute) Hyperglycemia (Acute) Subjective: Complain of pain left elbow denies fevers chills malaise does admit to swelling in left upper extremity - Physical Exam Vitals/I&O's: Vital Signs Temp Pulse Resp BP Pulse Ox 98.0 F 86 18 147/94 H 99 03/18/19 08:00 03/18/19 08:00 03/18/19 08:00 03/18/19 08:00 03/18/19 08:00 Oxygen Delivery Method Room Air Weight: 279 lb Body Mass Index (BMI) 32.2 Intake and Output for Last 24 Hours 03/16/19 03/17/19 03/18/19 23:59 23:59 23:59 Intake Total 1914. / 2465.00 3442 / 3442 208 / 208 Balance 191. / 2465.00 3442 / 3442 208 / 208 General: Alert, Oriented x3, No apparent distress Extremities: - Musculoskeletal: - - Seropurulent discharge from wound left elbow able to express large amount, further areas of fluctuance or suspected abscess rom okay. Nontender over flexor or extensor tendons able to move digits freely without pain. maceration of skin about posterior elbow. Microbiology Past 72 Hours 03/16/19 11:10 Blood Culture (Wb) - Right Hand Blood Culture - Preliminary No growth in 48 hours. 03/16/19 11:15 Blood Culture (Wb) - Left Hand Blood Culture - Preliminary No growth in 48 hours. 03/16/19 11:00 Wound Abcess - Elbow Gram Stain - Final 03/16/19 11:00 Wound Abcess - Elbow Wound Culture - Final Staphylococcus aureus Laboratory Results 03/17/19 17:11: POC Glucose 111 H 03/17/19 19:50: Vancomycin Trough 11.4 03/17/19 22:44: POC Glucose 98 03/18/19 05:50: WBC 9.1, RBC 4.94, Hgb 15.1, Hct 44.3, MCV 89.7, MCH 30.6, MCHC 34.1, RDW Std Deviation 40.4, RDW Coeff of Luan 12.3, Plt Count 197, MPV 8.6, Immature Gran % (Auto) 1.100 H, Neut % (Auto) 72.6 H, Lymph % (Auto) 17.7 L, [place] % (Auto) 6.8, Eos % (Auto) 1.2, Baso % (Auto) 0.6, Absolute Neuts (auto) 6.6, Absolute Lymphs (auto) 1.61, Nucleated RBC % 0 03/18/19 07:59: POC Glucose 107 Current Medications Acetaminophen (Tylenol) 650 mg PO Q6H PRN PRN PRN Reason: Pain Score 1-3/Temp > 100.7 F Al Hydroxide/Mg Hydroxide (Mylanta Ii) 30 ml PO Q6H PRN PRN PRN Reason: Gastric Burning Albuterol Sulfate (Ventolin Aerosols) 2.5 mg INHALATION Q2H PRN PRN PRN Reason: Shortness of Breath/Wheezing Clonidine (Catapres) 0.1 mg PO Q6H PRN PRN PRN Reason: SBP > 160 Last Admin: 03/17/19 22:41 Dose: 0.1 mg Documented by: Dextrose (D50w Syringe) 0 gm IV X1 PRN; Protocol PRN Reason: Hypoglycemia [facility] Last Admin: 03/18/19 08:01 Dose: 5 mg Documented by: Glucagon () 1 mg IM .X1 PRN PRN Reason: Hypoglycemia Hydromorphone HCl (Dilaudid Inj) 1 mg IV Q4H PRN PRN PRN Reason: Pain Score 6-10/10 Sodium Chloride () 250 mls @ 15 mls/hr IV .[id number] PRN PRN Reason: Saline Flush Cefazolin Sodium 2 gm/ Sodium (Chloride) 110 mls @ 150 mls/hr IV Q8 [facility] Ibuprofen (Motrin) 400 mg PO Q4H PRN PRN PRN Reason: Pain Score 1-3/Temp > 100.7 F Last Admin: 03/17/19 20:00 Dose: 400 mg Documented by: Insulin Human Lispro (Humalog Kwikpen (Bkc)) 0 unit SC BIDCM [facility]; Protocol Last Admin: 03/18/19 08:49 Dose: Not Given Documented by: Lisinopril (Zestril) 10 mg PO DAILY [facility] Last Admin: 03/18/19 08:01 Dose: 10 mg Documented by: Melatonin (Melatonin) 6 mg PO X1 [facility] Last Admin: 03/17/19 22:41 Dose: 6 mg Documented by: Ondansetron HCl (Zofran) 4 mg IV Q8H PRN PRN PRN Reason: NAUSEA/VOMITING Oxycodone HCl (Oxyir) 5 mg PO Q4H PRN PRN PRN Reason: Pain Score 4-5/10 Last Admin: 03/18/19 07:45 Dose: 5 mg Documented by: Senna/Docusate Sodium (Senokot-S, Jelena-Colace) 2 tablet PO BID PRN PRN PRN Reason: Constipation Sodium Chloride () 10 - 40 ml IV UD PRN PRN Reason: SALINE FLUSH Medical Necessity - Tobacco Use Smoking Status: Former smoker Tobacco Use: Cigars, Vapor Assessment/Plan All Active Problems Psoriasis (Acute) Cellulitis of left upper extremity (Acute) Septic olecranon bursitis of left elbow (Acute) Sepsis (Acute) Hyperglycemia (Acute) septic bursitis left elbow s/p percutaneous I&D by ED continues to have large amout of seropurulent drainage packing removed plan for I&D tomorrow morning continue IV abx
--- NOTE | 2019-03-18 10:14 | PCM.PN.HOSP ---
Patient Problems: Active and Suspected Problems Cellulitis of left upper extremity (Acute) Septic olecranon bursitis of left elbow (Acute) Sepsis (Acute) Hyperglycemia (Acute) Reason for Visit: Follow-up: Left elbow abscess with contiguous cellulitis from forearm to arm. Subjective: Patient is still has significant amount of seropurulent discharge from left olecranon site. Wound packing was removed. Patient was seen and examined along with orthopedic surgeon Dr Brooks The patient's was present in the room. Vitals/I&O's: Vital Signs Temp Pulse Resp BP Pulse Ox 98.0 F 86 18 147/94 H 99 03/18/19 08:00 03/18/19 08:00 03/18/19 08:00 03/18/19 08:00 03/18/19 08:00 Oxygen Delivery Method Room Air Weight: 279 lb Body Mass Index (BMI) 32.2 Intake and Output for Last 24 Hours 03/16/19 03/17/19 03/18/19 23:59 23:59 23:59 Intake Total 1915.00 / 2465.00 3442 / 3442 208 / 208 Balance 1914. / 2465.00 3442 / 3442 208 / 208 General: Alert, Oriented x3, Cooperative HEENT: Atraumatic, PERRLA, EOMI, Normocephalic Neck: Supple, No JVD, Negative Carotid Bruits Lungs: Clear to auscultation, Normal air movement, No rhonchi, No wheeze, No rales Cardiovascular: Regular rate, Regular Rhythm, Normal S1, No murmurs Abdomen: Bowel Sounds Present, Soft, Non Tender, Non-Distended Extremities: Capillary Refill Less than 3 Seconds, Edema - Left elbow, forearm and hand Skin: Ulcer/ Wound - Left olecranon bursa has significant seropurulent discharge. Wound packing was removed. Patient still has tenderness around elbow. Mild swelling of left elbow and dorsal aspect of hand. Probably from the acewrap bandage Musculoskeletal: No Tenderness to Palpation of Joints or Extremities Neurological: Cranial nerves II-XII grossly intact, Deep Tendon Reflexes 2+/4 and Symmetrical, Neuro grossly intact Psych/Mental Status: Normal Affect, Appropriate Microbiology Past 72 Hours 03/16/19 11:10 Blood Culture (Wb) - Right Hand Blood Culture - Preliminary No growth in 48 hours. 03/16/19 11:15 Blood Culture (Wb) - Left Hand Blood Culture - Preliminary No growth in 48 hours. 03/16/19 11:00 Wound Abcess - Elbow Gram Stain - Final 03/16/19 11:00 Wound Abcess - Elbow Wound Culture - Final Staphylococcus aureus Laboratory Results 03/17/19 17:11: POC Glucose 111 H 03/17/19 19:50: Vancomycin Trough 11.4 03/17/19 22:44: POC Glucose 98 03/18/19 05:50: WBC 9.1, RBC 4.94, Hgb 15.1, Hct 44.3, MCV 89.7, MCH 30.6, MCHC 34.1, RDW Std Deviation 40.4, RDW Coeff of Luan 12.3, Plt Count 197, MPV 8.6, Immature Gran % (Auto) 1.100 H, Neut % (Auto) 72.6 H, Lymph % (Auto) 17.7 L, [place] % (Auto) 6.8, Eos % (Auto) 1.2, Baso % (Auto) 0.6, Absolute Neuts (auto) 6.6, Absolute Lymphs (auto) 1.61, Nucleated RBC % 0 03/18/19 07:59: POC Glucose 107 Current Medications Acetaminophen (Tylenol) 650 mg PO Q6H PRN PRN PRN Reason: Pain Score 1-3/Temp > 100.7 F Al Hydroxide/Mg Hydroxide (Mylanta Ii) 30 ml PO Q6H PRN PRN PRN Reason: Gastric Burning Albuterol Sulfate (Ventolin Aerosols) 2.5 mg INHALATION Q2H PRN PRN PRN Reason: Shortness of Breath/Wheezing Clonidine (Catapres) 0.1 mg PO Q6H PRN PRN PRN Reason: SBP > 160 Last Admin: 03/17/19 22:41 Dose: 0.1 mg Documented by: Dextrose (D50w Syringe) 0 gm IV X1 PRN; Protocol PRN Reason: Hypoglycemia Glipizide (Glucotrol Xl) 5 mg PO DAILYCM [facility] Last Admin: 03/18/19 08:01 Dose: 5 mg Documented by: Glucagon () 1 mg IM .X1 PRN PRN Reason: Hypoglycemia Hydromorphone HCl (Dilaudid Inj) 1 mg IV Q4H PRN PRN PRN Reason: Pain Score 6-10/10 Sodium Chloride () 250 mls @ 15 mls/hr IV .[id number] PRN PRN Reason: Saline Flush Cefazolin Sodium 2 gm/ Sodium (Chloride) 110 mls @ 150 mls/hr IV Q8 [facility] Ibuprofen (Motrin) 400 mg PO Q4H PRN PRN PRN Reason: Pain Score 1-3/Temp > 100.7 F Last Admin: 03/17/19 20:00 Dose: 400 mg Documented by: Insulin Human Lispro (Humalog Kwikpen (Bkc)) 0 unit SC BIDCM [facility]; Protocol Last Admin: 03/18/19 08:49 Dose: Not Given Documented by: Lisinopril (Zestril) 10 mg PO DAILY [facility] Last Admin: 03/18/19 08:01 Dose: 10 mg Documented by: Melatonin (Melatonin) 6 mg PO X1 [facility] Last Admin: 03/17/19 22:41 Dose: 6 mg Documented by: Ondansetron HCl (Zofran) 4 mg IV Q8H PRN PRN PRN Reason: NAUSEA/VOMITING Oxycodone HCl (Oxyir) 5 mg PO Q4H PRN PRN PRN Reason: Pain Score 4-5/10 Last Admin: 03/18/19 07:45 Dose: 5 mg Documented by: Senna/Docusate Sodium (Senokot-S, Jelena-Colace) 2 tablet PO BID PRN PRN PRN Reason: Constipation Sodium Chloride () 10 - 40 ml IV UD PRN PRN Reason: SALINE FLUSH STROKE Vital Signs/Narrative: Vital Signs Temp Pulse Resp BP Pulse Ox 03/18/19 08:00 98.0 F 86 18 147/94 H 99 Medical Necessity - Tobacco Use Smoking Status: Former smoker Tobacco Use: Cigars, Vapor Assessment/Plan All Active Problems Psoriasis (Acute) Cellulitis of left upper extremity (Acute) Septic olecranon bursitis of left elbow (Acute) Sepsis (Acute) Hyperglycemia (Acute) There is a 38 gentleman admitted with left elbow swelling, redness and pain consistent with left elbow olecranon septic bursitis/abscess status post incision and drainage 1. Left olecranon septic bursitis/abscess status post incision and drainage: Patient is being admitted on [facility] floor. Patient was seen by ID. Patient got vancomycin in ER and will continue it. Ceftriaxone added for gram-negative coverage. Follow-up blood culture and wound abscess culture and MRSA and MRSA nasal screen. 03/17/19: Orthopedic surgeon consultation reviewed and appreciated. Plan is to change wound dressing tomorrow and evaluate the wound. Continue antibiotic as patient is responding well. Preliminary Gram stain of wound culture shows a staph aureus 3+. MRSA nasal screen negative. 03/18: Discussed with orthopedic surgeon. Patient needs formal incision and drainage in the OR. It is planned for tomorrow at noon. Wound culture shows MSSA. Vancomycin discontinued. Ceftriaxone replaced with IV cefazolin 2 g every 8 hourly. Discussed with the pharmacist. Discussed with the patient and regarding I&D for tomorrow and antibiotics. 2. HTN: Mild elevated. Lisinopril dose increased to 10 mg daily. 03/17: Patient blood pressure is improved. BP 130/83 continue lisinopril. 03/18: Blood pressures controlled 3. Psoriasis on immunosuppressant Cosentyx: patches has improved and decreased in size on cosentyx. It is every 4 week so patient doesn't need during admission. 4. New onset diabetes type 2 with hyperglycemia probably exacerbated by prednisone: Patient finished without prednisone tapering dose. 03/17: A1c 6.8 suggestive of diabetes mellitus type 2. Started on glipizide XL 5 mg daily. Will need metformin once infection is resolved 03/18: Accu-Cheks are better controlled, 98 and 107. Continue glipizide XL. Accu-Cheks frequency reduced before breakfast and dinner. DVT prophylaxis: Low risk early ambulation encouraged. Start Lovenox 40 g subcu daily as patient here for more than 2 days Code Visit Inpatient E&M: 72365 Subs Hosp L2
[2019-03-18 11:50] VITALS: O2SAT 93
[2019-03-18] MEDS: Enoxaparin 40 MG/0.4 ML Syringe SC (13:26)
[2019-03-18] MEDS: Cefazolin 2 GM in 0.9% Normal Saline 100 ML IV ×2 (13:49→22:08)
[2019-03-18 14:00] VITALS: BP 144/92; PULSE 97; RESP 18; TEMP 36.6; O2SAT 98
[2019-03-18 16:46] LABS: Bedside Glucose 174 mg/dL (70-110)
[2019-03-18] MEDS: Insulin Lispro 100 UNIT/ML INSULN.PEN SC (18:10)
[2019-03-18] MEDS: Ibuprofen 400 MG Tablet PO (20:38)
[2019-03-18 20:40] VITALS: BP 160/96; PULSE 95; RESP 18; TEMP 37.2; O2SAT 97
[2019-03-18] MEDS: 0.9% Saline Lock 10 ML Syringe IV (22:08)
[2019-03-18 22:45] LABS: Bedside Glucose 113 mg/dL (70-110)
[2019-03-18 22:45] LABS: Bedside Glucose 87 mg/dL (70-110)
[2019-03-19] VITALS (12 sets, daily range): BP systolic 125–167; BP diastolic 76–95; PULSE 72–91; RESP 16–18; TEMP 36.4–37.1; O2SAT 91–99; BMI 32.2
--- NOTE | 2019-03-19 05:00 | EKG12_ITS ---
Test Reason : PRE OP Blood Pressure : / mmHG Vent. Rate : 073 BPM Atrial Rate : 073 BPM P-R Int : 144 ms QRS Dur : 088 ms QT Int : 390 ms P-R-T Axes : 039 003 008 degrees QTc Int : 429 ms Normal sinus rhythm Normal ECG Confirmed by JI ALICIA, TOMAS ([id number]), multimedia editor ZAIDA LAM ([id number]) on 03/20/2019 3:03:04 PM Referred By: Ismael Gates Confirmed By:TOMAS WORKMAN MD
[2019-03-19 05:02] LABS: Absolute Lymphocyte Count 1.89 X10^3/uL (0.83-4.51); Absolute Neutrophil Count 6.6 X10^3/uL (2.0-7.7); Basophil# 0.05 X10^3/uL; Basophil% 0.5 % (0-1); Eosinophil# 0.12 X10^3/uL; Eosinophils% 1.3 % (0-5); Hematocrit 43.8 % (40-54); Hemoglobin 14.9 g/dL (13.0-16.5); Lymphocyte # 1.89 X10^3/ul (4.0); Lymphocyte % 20.2 % (19-41); Mean Corpuscular Hgb 30.6 pg (27.0-32.0); Mean Corpuscular Volume 89.9 fL (80-94); Mean Platelet Vol. 8.8 fl (6.2-12.0); Monocyte# 0.65 X10^3/uL; Monocyte% 6.9 % (0-10); NRBC Flagged by Analyzer 0 % (0-5); Neutrophil % 70.6 % (47-70); Platelet Count 209 K/mm3 (150-450); RBC Distribution Width CV 12.5 % (11.6-14.6); RBC Distribution Width SD 41.3 fl (35.1-43.9); Red Blood Count 4.87 M/mm3 (4.6-6.2); White Blood Count 9.4 K/mm3 (4.4-11.0)
[2019-03-19] MEDS: Cefazolin 2 GM in 0.9% Normal Saline 100 ML IV ×3 (05:20→21:02)
[2019-03-19] MEDS: 0.9% Saline Lock 10 ML Syringe IV (05:21)
[2019-03-19] MEDS: Ibuprofen 400 MG Tablet PO ×2 (05:24→17:30)
[2019-03-19 05:33] LABS: Vancomycin, Trough Level 3.3 ug/mL (5.0-15.0)
[2019-03-19 06:08] LABS: Anion Gap 8 (5-15); BUN 11 mg/dL (7-18); BUN/Creat Ratio 12.2 RATIO (10-20); Calcium,Total 8.6 mg/dL (8.5-10.1); Chloride 103 mmol/L (98-107); EST Glomerular Filtration Rate 99 mL/min (>60); Est Glom Filt Rate - Afr Amer 120 mL/min (>60); Estimated Creatinine Clearance 141.05 ml/min; Glucose 120 mg/dL (74-106); Potassium 4.1 mmol/L (3.5-5.1); Sodium Level 137 mmol/L (136-145)
--- NOTE | 2019-03-19 06:25 | NURSING ---
report called to Tessa ASHER in pacu. at 0625.
[2019-03-19] MEDS: Lactated Ringers 1,000 ML 100 ML IV ×2 (06:50→13:27)
[2019-03-19 08:15] LABS: Bedside Glucose 108 mg/dL (70-110)
--- NOTE | 2019-03-19 08:16 | NURSING ---
Was consulted on patient for redness to the left elbow. Pt is currently off the unit for surgery with Dr Romo. will follow as needed.
--- NOTE | 2019-03-19 08:17 | PCM.OPRPT ---
Report of Operation Date of Procedure: 03/19/19 Description of Surgical Findings:: Preoperative diagnosis: Left elbow septic bursitis Postoperative diagnosis: Same Procedure: Irrigation and debridement left elbow Anesthesia: General EBL: 10 Cultures: Aerobic / anaerobic Complications: None Condition: Able to PACU Tourniquet time: 20 minutes 250 mmHg Indication for procedure: 38-year-old male patient on Cosentyx for psoriasis developed left elbow septic bursitis initially treated in ED with percutaneous I&D by ER physician patient started on IV antibiotics cultures showed MSSA. Patient continued to have moderate amount of seropurulent drainage and we did discuss receding with a formal I&D to aid in the eradication of infection risk benefits and alternatives were reviewed including risk of bleeding infection nerve, artery, bone, tissue damage, blood clot need for further surgery and continued pain. Procedure: Patient met in the preoperative holding area once again the operative extremity was then 5 by both patient and physician was marked. Patient brought back to the operating room will car transfer the operative table supine position. Anesthesia was started. A well-padded tourniquet was placed on left upper extremity. Patient was prepped and draped in usual sterile fashion. A timeout was called into the proper patient procedure extremity being contemplated. Previous transverse incision made by the ER physician was extended proximally and distally full-thickness flaps aerobic and anaerobic cultures were taken. Thorough irrigation was performed followed by debridement with a rondure and a curette followed by Betadine rinse followed by us several more liters of irrigation incisions were gently reapproximated with 3-0 nylon simple interrupted stitches dressing was applied a form of Xeroform 4 x 4 ABD web roll and an Janes wrap from the hand to the upper arm. Patient will be encouraged to resume active range of motion immediately although to limit weightbearing through the extremity to 1 pound. He will continue IV antibiotics and eventually be transition to oral antibiotics by infectious disease dressing is to remain on for 72 hours then change daily sutures will be removed 3 weeks postop
[2019-03-19 08:26] LABS: Bedside Glucose 137 mg/dL (70-110)
[2019-03-19 09:35] LABS: M R Staph aureus DNA By PCR Negative (Negative); Probe Check PASS; Specimen Processing Control PASS; Staph aureus DNA By PCR POSITIVE (Negative)
[2019-03-19] MEDS: Ondansetron 4 MG/2 ML Vial IV (09:44)
[2019-03-19] MEDS: oxyCODONE 5 MG Tablet PO (09:45)
--- NOTE | 2019-03-19 09:45 | PN.ID_ITS ---
Patient Problems: Active and Suspected Problems Cellulitis of left upper extremity (Acute) Septic olecranon bursitis of left elbow (Acute) Sepsis (Acute) Hyperglycemia (Acute) Subjective: Patient is alert overall clinically stable and tolerating Ancef well. Was taken to surgery this morning for I&D of the left olecranon bursa. Stable postop. No fevers. No cardiopulmonary distress Objective: Alert does not appear toxic lungs are clear heart exam S1-S2. Left arm postop dressings are in place - Physical Exam Vitals/I&O's: Vital Signs Temp Pulse Resp BP Pulse Ox 97.6 F L 81 18 141/94 H 94 03/19/19 09:14 03/19/19 09:14 03/19/19 09:14 03/19/19 09:14 03/19/19 09:14 Oxygen Flow Rate (L/min) 2 Oxygen Delivery Method Room Air Weight: 126.552 kg Body Mass Index (BMI) 32.2 Intake and Output for Last 24 Hours 03/17/19 03/18/19 03/19/19 23:59 23:59 23:59 Intake Total 3442 / 3442 1408 / 1408 110 / 110 Balance 3442 / 3442 1408 / 1408 110 / 110 Microbiology Past 72 Hours 03/16/19 11:10 Blood Culture (Wb) - Right Hand Blood Culture - Preliminary No growth in 48 hours. 03/16/19 11:15 Blood Culture (Wb) - Left Hand Blood Culture - Preliminary No growth in 48 hours. 03/16/19 11:00 Wound Abcess - Elbow Gram Stain - Final 03/16/19 11:00 Wound Abcess - Elbow Wound Culture - Final Staphylococcus aureus Laboratory Results 03/18/19 16:36: POC Glucose 174 H 03/18/19 22:02: POC Glucose 87 03/18/19 22:40: POC Glucose 113 H 03/19/19 04:34: WBC 9.4, RBC 4.87, Hgb 14.9, Hct 43.8, MCV 89.9, MCH 30.6, MCHC 34.0, RDW Std Deviation 41.3, RDW Coeff of Luan 12.5, Plt Count 209, MPV 8.8, Immature Gran % (Auto) 0.500, Neut % (Auto) 70.6 H, Lymph % (Auto) 20.2, [place] % (Auto) 6.9, Eos % (Auto) 1.3, Baso % (Auto) 0.5, Absolute Neuts (auto) 6.6, Absolute Lymphs (auto) 1.89, Nucleated RBC % 0 03/19/19 04:34: Sodium 137, Potassium 4.1, Chloride 103, Carbon Dioxide 26.0, Anion Gap 8, BUN 11, Creatinine 0.90, Estim Creat Clear Calc 141.05, Est GFR (MDRD) Af Amer 120, Est GFR (MDRD) Non-Af 99, BUN/Creatinine Ratio 12.2, Glucose 120 H, Calcium 8.6 03/19/19 04:34: Vancomycin Trough 3.3 L 03/19/19 06:15: POC Glucose 108 03/19/19 08:23: POC Glucose 137 H 03/19/19 : S.aureus Protein A PCR POSITIVE H, MRSA (PCR) Negative Current Medications Acetaminophen (Tylenol) 650 mg PO Q6H PRN PRN PRN Reason: Pain Score 1-3/Temp > 100.7 F Al Hydroxide/Mg Hydroxide (Mylanta Ii) 30 ml PO Q6H PRN PRN PRN Reason: Gastric Burning Albuterol Sulfate (Ventolin Aerosols) 2.5 mg INHALATION Q2H PRN PRN PRN Reason: Shortness of Breath/Wheezing Clonidine (Catapres) 0.1 mg PO Q6H PRN PRN PRN Reason: SBP > 160 Last Admin: 03/17/19 22:41 Dose: 0.1 mg Documented by: Dextrose (D50w Syringe) 0 gm IV X1 PRN; Protocol PRN Reason: Hypoglycemia Enoxaparin Sodium (Lovenox) 40 mg SC DAILY [facility] Last Admin: 03/19/19 09:09 Dose: Not Given Documented by: Glucagon () 1 mg IM .X1 PRN PRN Reason: Hypoglycemia Hydromorphone HCl (Dilaudid Inj) 1 mg IV Q4H PRN PRN PRN Reason: Pain Score 6-10/10 Sodium Chloride () 250 mls @ 15 mls/hr IV .[id number] PRN PRN Reason: Saline Flush Cefazolin Sodium 2 gm/ Sodium (Chloride) 110 mls @ 150 mls/hr IV Q8 [facility] Last Infusion: 03/19/19 06:22 Dose: Infused Documented by: Lactated Ringer's () 1,000 mls @ 100 mls/hr IV .Q10H [facility] Last Admin: 03/19/19 06:50 Dose: 100 mls/hr Documented by: Ibuprofen (Motrin) 400 mg PO Q4H PRN PRN PRN Reason: Pain Score 1-3/Temp > 100.7 F Last Admin: 03/19/19 05:24 Dose: 400 mg Documented by: Insulin Human Lispro (Humalog Kwikpen (Bkc)) 0 unit SC BIDCM [facility]; Protocol Last Admin: 03/19/19 09:09 Dose: Not Given Documented by: Lisinopril (Zestril) 10 mg PO DAILY [facility] Last Admin: 03/18/19 08:01 Dose: 10 mg Documented by: Melatonin (Melatonin) 6 mg PO X1 [facility] Last Admin: 03/19/19 02:45 Dose: Not Given Documented by: Ondansetron HCl (Zofran) 4 mg IV Q8H PRN PRN PRN Reason: NAUSEA/VOMITING Last Admin: 03/19/19 09:44 Dose: 4 mg Documented by: Oxycodone HCl (Oxyir) 5 mg PO Q4H PRN PRN PRN Reason: Pain Score 4-5/10 Last Admin: 03/19/19 09:45 Dose: 5 mg Documented by: Senna/Docusate Sodium (Senokot-S, Jelena-Colace) 2 tablet PO BID PRN PRN PRN Reason: Constipation Sodium Chloride () 10 - 40 ml IV UD PRN PRN Reason: SALINE FLUSH Last Admin: 03/19/19 05:21 Dose: 10 ml Documented by: Medical Necessity - Tobacco Use Smoking Status: Former smoker Tobacco Use: Cigars, Vapor Route of nutrition/ use of supplements: [] Nutritional Intake: [] IV Site: [] Patel Catheter: [] Septic bursitis of the left olecranon bursa with MSSA. Continue Ancef 2 g IV every 8 hours Continue supportive care. - Assessment/Plan Antibiotics: [] Assessment/Plan: [] Active and Suspected Problems Cellulitis of left upper extremity (Acute) Septic olecranon bursitis of left elbow (Acute) Sepsis (Acute) Hyperglycemia (Acute)
--- NOTE | 2019-03-19 10:17 | NURSING ---
Pt back in room from surgery. orders are to keep post op dressing in place for 48 hrs.
--- NOTE | 2019-03-19 10:45 | PN_ITS ---
Patient Problems: Active and Suspected Problems Cellulitis of left upper extremity (Acute) Septic olecranon bursitis of left elbow (Acute) Sepsis (Acute) Hyperglycemia (Acute) Reason for Visit: Left olecranon septic bursitis. Patient had OR I&D today Subjective: No fever or chills. No tachycardia. Patient was taken to or today Vitals/I&O's: Vital Signs Temp Pulse Resp BP Pulse Ox 97.6 F L 81 18 141/94 H 94 03/19/19 09:14 03/19/19 09:14 03/19/19 09:14 03/19/19 09:14 03/19/19 09:14 Oxygen Flow Rate (L/min) 2 Oxygen Delivery Method Room Air Weight: 279 lb Body Mass Index (BMI) 32.2 Intake and Output for Last 24 Hours 03/17/19 03/18/19 03/19/19 23:59 23:59 23:59 Intake Total 3442 / 3442 1408 / 1408 110 / 110 Balance 3442 / 3442 1408 / 1408 110 / 110 General: Alert, Oriented x3, Cooperative HEENT: Atraumatic, PERRLA, EOMI, Normocephalic Neck: Supple, No JVD, Negative Carotid Bruits Lungs: Clear to auscultation, Normal air movement, No rhonchi, No wheeze, No rales Cardiovascular: Regular rate, Regular Rhythm, Normal S1, Normal S2, No murmurs Abdomen: Bowel Sounds Present, Soft, Non Tender, Non-Distended Extremities: No edema, Capillary Refill Less than 3 Seconds Skin: No rashes, No breakdown Musculoskeletal: No Tenderness to Palpation of Joints or Extremities, Arthritic Changes Neurological: Cranial nerves II-XII grossly intact, Deep Tendon Reflexes 2+/4 and Symmetrical, Neuro grossly intact Psych/Mental Status: Normal Affect, Appropriate Microbiology Past 72 Hours 03/16/19 11:10 Blood Culture (Wb) - Right Hand Blood Culture - Preliminary No growth in 48 hours. 03/16/19 11:15 Blood Culture (Wb) - Left Hand Blood Culture - Preliminary No growth in 48 hours. 03/16/19 11:00 Wound Abcess - Elbow Gram Stain - Final 03/16/19 11:00 Wound Abcess - Elbow Wound Culture - Final Staphylococcus aureus Laboratory Results 03/18/19 16:36: POC Glucose 174 H 03/18/19 22:02: POC Glucose 87 03/18/19 22:40: POC Glucose 113 H 03/19/19 04:34: WBC 9.4, RBC 4.87, Hgb 14.9, Hct 43.8, MCV 89.9, MCH 30.6, MCHC 34.0, RDW Std Deviation 41.3, RDW Coeff of Luan 12.5, Plt Count 209, MPV 8.8, Immature Gran % (Auto) 0.500, Neut % (Auto) 70.6 H, Lymph % (Auto) 20.2, [place] % (Auto) 6.9, Eos % (Auto) 1.3, Baso % (Auto) 0.5, Absolute Neuts (auto) 6.6, Absolute Lymphs (auto) 1.89, Nucleated RBC % 0 03/19/19 04:34: Sodium 137, Potassium 4.1, Chloride 103, Carbon Dioxide 26.0, Anion Gap 8, BUN 11, Creatinine 0.90, Estim Creat Clear Calc 141.05, Est GFR (MDRD) Af Amer 120, Est GFR (MDRD) Non-Af 99, BUN/Creatinine Ratio 12.2, Glucose 120 H, Calcium 8.6 03/19/19 04:34: Vancomycin Trough 3.3 L 03/19/19 06:15: POC Glucose 108 03/19/19 08:23: POC Glucose 137 H 03/19/19 : S.aureus Protein A PCR POSITIVE H, MRSA (PCR) Negative Current Medications Acetaminophen (Tylenol) 650 mg PO Q6H PRN PRN PRN Reason: Pain Score 1-3/Temp > 100.7 F Al Hydroxide/Mg Hydroxide (Mylanta Ii) 30 ml PO Q6H PRN PRN PRN Reason: Gastric Burning Albuterol Sulfate (Ventolin Aerosols) 2.5 mg INHALATION Q2H PRN PRN PRN Reason: Shortness of Breath/Wheezing Clonidine (Catapres) 0.1 mg PO Q6H PRN PRN PRN Reason: SBP > 160 Last Admin: 03/17/19 22:41 Dose: 0.1 mg Documented by: Dextrose (D50w Syringe) 0 gm IV X1 PRN; Protocol PRN Reason: Hypoglycemia Enoxaparin Sodium (Lovenox) 40 mg SC DAILY [facility] Glipizide (Glucotrol Xl) 5 mg PO DAILYCM [facility] Last Admin: 03/19/19 09:09 Dose: Not Given Documented by: Glucagon () 1 mg IM .X1 PRN PRN Reason: Hypoglycemia Hydromorphone HCl (Dilaudid Inj) 1 mg IV Q4H PRN PRN PRN Reason: Pain Score 6-10/10 Sodium Chloride () 250 mls @ 15 mls/hr IV .[id number] PRN PRN Reason: Saline Flush Cefazolin Sodium 2 gm/ Sodium (Chloride) 110 mls @ 150 mls/hr IV Q8 [facility] Last Infusion: 03/19/19 06:22 Dose: Infused Documented by: Lactated Ringer's () 1,000 mls @ 100 mls/hr IV .Q10H [facility] Last Admin: 03/19/19 06:50 Dose: 100 mls/hr Documented by: Ibuprofen (Motrin) 400 mg PO Q4H PRN PRN PRN Reason: Pain Score 1-3/Temp > 100.7 F Last Admin: 03/19/19 05:24 Dose: 400 mg Documented by: Insulin Human Lispro (Humalog Kwikpen (Bkc)) [facility] Protocol Last Admin: 03/19/19 09:09 Dose: Not Given Documented by: Lisinopril (Zestril) 10 mg PO DAILY [facility] Last Admin: 03/18/19 08:01 Dose: 10 mg Documented by: Melatonin (Melatonin) 6 mg PO X1 [facility] Last Admin: 03/19/19 02:45 Dose: Not Given Documented by: Ondansetron HCl (Zofran) 4 mg IV Q8H PRN PRN PRN Reason: NAUSEA/VOMITING Last Admin: 03/19/19 09:44 Dose: 4 mg Documented by: Oxycodone HCl (Oxyir) 5 mg PO Q4H PRN PRN PRN Reason: Pain Score 4-5/10 Last Admin: 03/19/19 09:45 Dose: 5 mg Documented by: Senna/Docusate Sodium (Senokot-S, Jelena-Colace) 2 tablet PO BID PRN PRN PRN Reason: Constipation Sodium Chloride () 10 - 40 ml IV UD PRN PRN Reason: SALINE FLUSH Last Admin: 03/19/19 05:21 Dose: 10 ml Documented by: STROKE Vital Signs/Narrative: Vital Signs Temp Pulse Resp BP Pulse Ox 03/19/19 09:14 97.6 F L 81 18 141/94 H 94 03/19/19 08:49 98.7 F 85 16 149/89 H 93 03/19/19 08:45 88 16 132/90 H 96 03/19/19 08:30 91 18 131/92 H 94 03/19/19 08:15 86 16 125/85 H 96 03/19/19 08:06 98.2 F 89 16 133/92 H 91 03/19/19 07:32 94 Medical Necessity - Tobacco Use Smoking Status: Former smoker Tobacco Use: Cigars, Vapor Assessment/Plan All Active Problems Psoriasis (Acute) Cellulitis of left upper extremity (Acute) Septic olecranon bursitis of left elbow (Acute) Sepsis (Acute) Hyperglycemia (Acute) There is a 38 gentleman admitted with left elbow swelling, redness and pain consistent with left elbow olecranon septic bursitis/abscess status post incision and drainage 1. Left olecranon septic bursitis/abscess status post incision and drainage: Patient is being admitted on [facility] floor. Patient was seen by ID. Patient got vancomycin in ER and will continue it. Ceftriaxone added for gram-negative coverage. Follow-up blood culture and wound abscess culture and MRSA and MRSA nasal screen. 03/17/19: Orthopedic surgeon consultation reviewed and appreciated. Plan is to change wound dressing tomorrow and evaluate the wound. Continue antibiotic as patient is responding well. Preliminary Gram stain of wound culture shows a staph aureus 3+. MRSA nasal screen negative. 03/18: Discussed with orthopedic surgeon. Patient needs formal incision and drainage in the OR. It is planned for tomorrow at noon. Wound culture shows MSSA. Vancomycin discontinued. Ceftriaxone replaced with IV cefazolin 2 g every 8 hourly. Discussed with the pharmacist. Discussed with the patient and regarding I&D for tomorrow and antibiotics. 03/19: Patient had OR today. Operative note reviewed. Incision was extended. Thorough irrigation and cultures were taken. This was discussed with the patient and relative present in the room. Patient is slightly drowsy and lethargic after return from surgery. Resume diet once patient is fully awake. Blood culture negative for 48 hours. Continue present IV cefazolin. 2. HTN: Mild elevated. Lisinopril dose increased to 10 mg daily. 03/17: Patient blood pressure is improved. BP 130/83 continue lisinopril. 03/18: Blood pressures controlled 03/19: Blood pressure controlled 132/90. 3. Psoriasis on immunosuppressant Cosentyx: patches has improved and decreased in size on cosentyx. It is every 4 week so patient doesn't need during admission. 4. New onset diabetes type 2 with hyperglycemia probably exacerbated by prednisone: Patient finished without prednisone tapering dose. 03/17: A1c 6.8 suggestive of diabetes mellitus type 2. Started on glipizide XL 5 mg daily. Will need metformin once infection is resolved 03/18: Accu-Cheks are better controlled, 98 and 107. Continue glipizide XL. Accu-Cheks frequency reduced before breakfast and dinner. 03/19: Glucose 120. Accu-Cheks 108, 137. DVT prophylaxis: Low risk early ambulation encouraged. Start Lovenox 40 g subcu daily as patient here for more than 2 days Code Visit Inpatient E&M: [id number] Subs Hosp L2
[2019-03-19] MEDS: Lisinopril 10 MG Tablet PO (11:42)
[2019-03-19 11:55] LABS: Bedside Glucose 154 mg/dL (70-110)
[2019-03-19 23:05] LABS: Bedside Glucose 100 mg/dL (70-110)
[2019-03-20 00:10] LABS: Bedside Glucose 118 mg/dL (70-110)
[2019-03-20] MEDS: Lactated Ringers 1,000 ML 100 ML IV (01:00)
[2019-03-20 03:43] VITALS: BP 134/86; PULSE 73; RESP 14; TEMP 36.7; O2SAT 95
[2019-03-20] MEDS: Cefazolin 2 GM in 0.9% Normal Saline 100 ML IV (05:24)
[2019-03-20 06:53] VITALS: O2SAT 98
[2019-03-20] MEDS: oxyCODONE 5 MG Tablet PO (07:18)
[2019-03-20 08:10] LABS: Bedside Glucose 116 mg/dL (70-110)
--- NOTE | 2019-03-20 08:24 | PCM.DC ---
- Discharge Diagnoses Current Active Problems: Current Active and Chronic Problems Cellulitis of left upper extremity (Acute) Septic olecranon bursitis of left elbow (Acute) Sepsis (Acute) HTN (hypertension) (Chronic) Hyperglycemia (Acute) You will use the following diet at home:: Calorie/Carbohydrate Controlled (specify 1200, 1400, etc) - 1600 ADA diet Your food should be the consistency of: Regular Discharge Activity: May Not Drive Weight Bearing Status: Weight bearing as tolerated Call your doctor if you observe: Fever of 101 or Higher, Numbness or Tingling, Inability to urinate, Inability to have a bowel movement, Shortness of breath, Dizziness, Fainting spells, Swelling in the ankles, Chest pain, Prolonged hiccoughing, Increased palpitations (irregular heartbeat), Uncontrolled pain Allergies/Adverse Reactions: Allergies No Known Allergies Allergy (Verified 03/16/19 10:32) Medications to take at Discharge Secukinumab [Cosentyx Pen (2 Pens)] 300 mg SQ 03/16/19 Lisinopril 20 mg PO DAILY #30 tab 03/20/19 Metformin HCl 500 mg PO BID #60 tab 03/20/19 Oxycodone [Oxyir] 5 mg PO Q4H PRN PRN 3 Days #10 tab 03/20/19 glipiZIDE XL [Glucotrol Xl] 5 mg PO DAILYCM #30 tab 03/20/19 The following prescriptions were given: glipiZIDE XL [Glucotrol Xl] 5 mg PO DAILYCM #30 tab Transmission Status: Received by [id number] Lisinopril 20 mg PO DAILY #30 tab Transmission Status: Received by [id number] Metformin HCl 500 mg PO BID #60 tab Transmission Status: Sent to [id number] Oxycodone [Oxyir] 5 mg PO Q4H PRN PRN 3 Days #10 tab PRN Reason: Pain Score 6-10/10 Prescription Printed Primary Care Physician: Sina Rodríguez DO [Primary Care Provider] - Please follow up with your Primary Care Physician in: in 1-2 week Test Results: Test results from this visit will be discussed in further detail at your follow-up appointment, if applicable. Please Follow Up With: Pedro Romo DO When: in 2 weeks Please Follow Up With: Navjot Jon MD When: in 2-3 weeks
--- NOTE | 2019-03-20 08:26 | PCM.DC.SUM ---
Discharge Date and Diagnosis - Problem List Patient Problems: Active and Suspected Problems Cellulitis of left upper extremity (Acute) Septic olecranon bursitis of left elbow (Acute) Sepsis (Acute) Hyperglycemia (Acute) Date of Admission: 03/16/19 Date of Discharge: 03/20/19 - Primary Discharge Diagnosis Active and Suspected Problems Cellulitis of left upper extremity (Acute) Septic olecranon bursitis of left elbow (Acute) Sepsis (Acute) Uncontrolled hypertension New onset diabetes mellitus type 2 - Secondary Discharge Diagnosis Chronic Problems HTN (hypertension) (Chronic) Hospital Course and Treatment Consultations 03/16/19 13:16 Consult: Onc/Wound/diet technician registered Routine Comment: Reason for Consult:: Left olecranon abscess Summary of Care Provided: [] There is a 38 gentleman admitted with left elbow swelling, redness and pain consistent with left elbow olecranon septic bursitis/abscess status post incision and drainage 1. Left olecranon septic bursitis/abscess status post incision and drainage: Patient is being admitted on [facility] floor. Patient was seen by ID. Patient got vancomycin in ER and will continue it. Ceftriaxone added for gram-negative coverage. Follow-up blood culture and wound abscess culture and MRSA and MRSA nasal screen. 03/17/19: Orthopedic surgeon consultation reviewed and appreciated. Plan is to change wound dressing tomorrow and evaluate the wound. Continue antibiotic as patient is responding well. Preliminary Gram stain of wound culture shows a staph aureus 3+. MRSA nasal screen negative. 03/18: Discussed with orthopedic surgeon. Patient needs formal incision and drainage in the OR. It is planned for tomorrow at noon. Wound culture shows MSSA. Vancomycin discontinued. Ceftriaxone replaced with IV cefazolin 2 g every 8 hourly. Discussed with the pharmacist. Discussed with the patient and regarding I&D for tomorrow and antibiotics. 03/19: Patient had OR today. Operative note reviewed. Incision was extended. Thorough irrigation and cultures were taken. This was discussed with the patient and relative present in the room. Patient is slightly drowsy and lethargic after return from surgery. Resume diet once patient is fully awake. Blood culture negative for 48 hours. Continue present IV cefazolin. 03/20: Postop dressing is dry. Patient was seen by orthopedic surgeon. Advised to keep dressing for 72 hours postop and then may remove it. Oxycodone 5 mg every 4 hourly as needed for severe pain total 10 tablets prescription was given. Keflex 500 mg 4 times daily for 14 days given by ID consulted. 2. HTN; essential uncontrolled: Lisinopril dose increased to 10 mg daily. 03/17: Patient blood pressure is improved. BP 130/83 continue lisinopril. 03/18: Blood pressures controlled 03/19: Blood pressure controlled 132/90. 03/20: Blood pressure is elevated, 150/92. Patient was put on clonidine 0.1 mg every 6 hourly as needed for systolic blood pressure more than 160 mmHg by nighttime hospitalist. Prescription given for lisinopril 20 mg. Clonidine discontinued. 3. Psoriasis on immunosuppressant Cosentyx: patches has improved and decreased in size on cosentyx. It is every 4 week so patient doesn't need during admission. Hold for 1 month. 4. New onset diabetes type 2 with hyperglycemia probably exacerbated by prednisone: Patient finished without prednisone tapering dose. 03/17: A1c 6.8 suggestive of diabetes mellitus type 2. Started on glipizide XL 5 mg daily. Will need metformin once infection is resolved 03/18: Accu-Cheks are better controlled, 98 and 107. Continue glipizide XL. Accu-Cheks frequency reduced before breakfast and dinner. 03/19: Glucose 120. Accu-Cheks 108, 137. 03/20: Glucose is reasonably well controlled. Prescription given for glipizide XL 5 mg daily and metformin 500 mg twice daily. Follow-up PCP for further glucose control and diabetes mellitus management. DVT prophylaxis: Low risk early ambulation encouraged. Start Lovenox 40 g subcu daily as patient here for more than 2 days Discharge medication reconciliation done. Discharge follow-up instructions completed. Discharge process discussed with the patient and all questions were answered to patient's satisfaction. Follow-up with orthopedic surgeon on 03/26/2019 for wound check. Limit weightbearing for 2 points, encourage finger wrist and elbow shoulder range of motion. Prescription for Keflex and clotrimazole cream given by ID oracle identity management consultant. Follow-up with orthopedic surgeon and ID as an discharge instruction. Total time spent, exact 35 minutes on discharge meds reconciliation, examination, review of imaging and blood test and discussion with the patient on follow-up instructions. Patient Problems: Active and Suspected Problems Cellulitis of left upper extremity (Acute) Septic olecranon bursitis of left elbow (Acute) Sepsis (Acute) Hyperglycemia (Acute) - Physical Exam Vitals/I&O's: Vital Signs Temp Pulse Resp BP Pulse Ox 98.1 F 73 14 134/86 H 98 03/20/19 03:43 03/20/19 03:43 03/20/19 03:43 03/20/19 03:43 03/20/19 06:53 Oxygen Flow Rate (L/min) 1.5 Oxygen Delivery Method Nasal Cannula Weight: 279 lb Body Mass Index (BMI) 32.2 Intake and Output for Last 24 Hours 03/18/19 03/19/19 03/20/19 23:59 23:59 23:59 Intake Total 1408 / 1408 1680.00 / 1980.00 1053.33 / 1053.33 Output Total 1600 / 1600 Balance 1408 / 1408 80.00 / 380.00 1053.33 / 1053.33 General: Alert, Oriented x3, Cooperative HEENT: Atraumatic, PERRLA, EOMI, Normocephalic Neck: Supple, No JVD, Negative Carotid Bruits Lungs: Clear to auscultation, Normal air movement, No rhonchi, No wheeze, No rales Cardiovascular: Regular rate, Regular Rhythm, Normal S1, Normal S2, No murmurs Abdomen: Bowel Sounds Present, Soft, Non Tender, Non-Distended Extremities: No edema, Capillary Refill Less than 3 Seconds, Peripheral Pulses Normal Skin: Ulcer/ Wound - Left elbow septic bursitis postop dressing and Janes wrap bandage on. Peripheral pulses are adequate and good. Patient can make a fist., Rash Present - Bilateral axillary area, since tinea infection Musculoskeletal: No Tenderness to Palpation of Joints or Extremities, Arthritic Changes Neurological: Cranial nerves II-XII grossly intact, Deep Tendon Reflexes 2+/4 and Symmetrical, Neuro grossly intact Psych/Mental Status: Normal Affect, Appropriate Microbiology Past 72 Hours 03/19/19 Unknown Wound Drainage - Aerobic & Anaerobic Swabs Gram Stain - Final 03/19/19 Unknown Wound Drainage - Aerobic & Anaerobic Swabs Wound Culture - Preliminary Staphylococcus aureus 03/16/19 11:00 Wound Abcess - Elbow Gram Stain - Final 03/16/19 11:00 Wound Abcess - Elbow Wound Culture - Final Staphylococcus aureus 03/16/19 11:00 Wound Abcess - Elbow Anaerobic Culture - Final No anaerobic bacteria isolated. 03/16/19 11:10 Blood Culture (Wb) - Right Hand Blood Culture - Preliminary No growth in 48 hours. 03/16/19 11:15 Blood Culture (Wb) - Left Hand Blood Culture - Preliminary No growth in 48 hours. Laboratory Results 03/19/19 08:23: POC Glucose 137 H 03/19/19 11:39: POC Glucose 154 H 03/19/19 17:25: POC Glucose 118 H 03/19/19 23:01: POC Glucose 100 03/19/19 : S.aureus Protein A PCR POSITIVE H, MRSA (PCR) Negative 03/20/19 08:00: POC Glucose 116 H Current Medications Acetaminophen (Tylenol) 650 mg PO Q6H PRN PRN PRN Reason: Pain Score 1-3/Temp > 100.7 F Al Hydroxide/Mg Hydroxide (Mylanta Ii) 30 ml PO Q6H PRN PRN PRN Reason: Gastric Burning Albuterol Sulfate (Ventolin Aerosols) 2.5 mg INHALATION Q2H PRN PRN PRN Reason: Shortness of Breath/Wheezing Clonidine (Catapres) 0.1 mg PO Q6H PRN PRN PRN Reason: SBP > 160 Last Admin: 03/17/19 22:41 Dose: 0.1 mg Documented by: Dextrose (D50w Syringe) 0 gm IV X1 PRN; Protocol PRN Reason: Hypoglycemia Enoxaparin Sodium (Lovenox) 40 mg SC DAILY [facility] Glipizide (Glucotrol Xl) 5 mg PO DAILYCM [facility] Last Admin: 03/19/19 09:09 Dose: Not Given Documented by: Glucagon () 1 mg IM .X1 PRN PRN Reason: Hypoglycemia Hydromorphone HCl (Dilaudid Inj) 1 mg IV Q4H PRN PRN PRN Reason: Pain Score 6-10/10 Sodium Chloride () 250 mls @ 15 mls/hr IV .[id number] PRN PRN Reason: Saline Flush Cefazolin Sodium 2 gm/ Sodium (Chloride) 110 mls @ 150 mls/hr IV Q8 [facility] Last Infusion: 03/20/19 06:08 Dose: Infused Documented by: Lactated Ringer's () 1,000 mls @ 100 mls/hr IV .Q10H [facility] Last Infusion: 03/20/19 06:08 Dose: 100 mls/hr Documented by: Ibuprofen (Motrin) 400 mg PO Q4H PRN PRN PRN Reason: Pain Score 1-3/Temp > 100.7 F Last Admin: 03/19/19 17:30 Dose: 400 mg Documented by: Insulin Human Lispro (Humalog K[facility] (Bkc)) [facility]; Protocol Last Admin: 03/19/19 17:27 Dose: Not Given Documented by: Lisinopril (Zestril) 10 mg PO DAILY [facility] Last Admin: 03/19/19 11:42 Dose: 10 mg Documented by: Melatonin (Melatonin) 6 mg PO X1 [facility] Last Admin: 03/19/19 21:01 Dose: Not Given Documented by: Ondansetron HCl (Zofran) 4 mg IV Q8H PRN PRN PRN Reason: NAUSEA/VOMITING Last Admin: 03/19/19 09:44 Dose: 4 mg Documented by: Oxycodone HCl (Oxyir) 5 mg PO Q4H PRN PRN PRN Reason: Pain Score 4-5/10 Last Admin: 03/20/19 07:18 Dose: 5 mg Documented by: Senna/Docusate Sodium (Senokot-S, Jelena-Colace) 2 tablet PO BID PRN PRN PRN Reason: Constipation Sodium Chloride () 10 - 40 ml IV UD PRN PRN Reason: SALINE FLUSH Last Admin: 03/19/19 05:21 Dose: 10 ml Documented by: Discharge Activity: May Not Drive Weight Bearing Status: Weight bearing as tolerated Call your doctor if you observe: Fever of 101 or Higher, Numbness or Tingling, Inability to urinate, Inability to have a bowel movement, Shortness of breath, Dizziness, Fainting spells, Swelling in the ankles, Chest pain, Prolonged hiccoughing, Increased palpitations (irregular heartbeat), Uncontrolled pain Home Medications: Medications to take at Discharge Secukinumab [Cosentyx Pen (2 Pens)] 300 mg SQ 03/16/19 Lisinopril 20 mg PO DAILY #30 tab 03/20/19 Metformin HCl 500 mg PO BID #60 tab 03/20/19 Oxycodone [Oxyir] 5 mg PO Q4H PRN PRN 3 Days #10 tab 03/20/19 glipiZIDE XL [Glucotrol Xl] 5 mg PO DAILYCM #30 tab 03/20/19 Following Prescrptions Were Given to Patient: glipiZIDE XL [Glucotrol Xl] 5 mg PO DAILYCM #30 tab Transmission Status: Received by [facility] Lisinopril 20 mg PO DAILY #30 tab Transmission Status: Received by [facility] Metformin HCl 500 mg PO BID #60 tab Transmission Status: Received by [facility] Oxycodone [Oxyir] 5 mg PO Q4H PRN PRN 3 Days #10 tab PRN Reason: Pain Score 6-1010 Prescription Printed Primary Care Physician: Sina Rodríguez DO [Primary Care Provider] - Please follow up with your Primary Care Physician in: in 1-2 week Please Follow Up With: Pedro Romo DO When: in 2 weeks Please Follow Up With: Navjot Jon MD When: in 2-3 weeks Medical Necessity - Tobacco Use Smoking Status: Former smoker Tobacco Use: Cigars, Vapor Meaningful Use Info Meaningful Use Diagnoses (Choose all that apply): None applicable Code Visit Inpatient E&M: 53195 Disch Hosp
[2019-03-20 08:36] LABS: Absolute Lymphocyte Count 1.99 X10^3/uL (0.83-4.51); Absolute Neutrophil Count 10.4 X10^3/uL (2.0-7.7); Basophil# 0.03 X10^3/uL; Basophil% 0.2 % (0-1); Eosinophil# 0.01 X10^3/uL; Eosinophils% 0.1 % (0-5); Hematocrit 42.1 % (40-54); Hemoglobin 14.6 g/dL (13.0-16.5); Lymphocyte # 1.99 X10^3/ul (4.0); Lymphocyte % 15.1 % (19-41); Mean Corp Hgb Conc 34.7 g/dL (32-36); Mean Corpuscular Hgb 30.7 pg (27.0-32.0); Mean Corpuscular Volume 88.4 fL (80-94); Mean Platelet Vol. 8.5 fl (6.2-12.0); Monocyte# 0.66 X10^3/uL; NRBC Flagged by Analyzer 0 % (0-5); Neutrophil # 10.38 X10^3/uL (2.7-7.7); Platelet Count 230 K/mm3 (150-450); RBC Distribution Width CV 11.9 % (11.6-14.6); RBC Distribution Width SD 38.7 fl (35.1-43.9); Red Blood Count 4.76 M/mm3 (4.6-6.2); White Blood Count 13.2 K/mm3 (4.4-11.0)
[2019-03-20 08:47] LABS: Anion Gap 5 (5-15); BUN 11 mg/dL (7-18); BUN/Creat Ratio 13.7 RATIO (10-20); Calcium,Total 8.8 mg/dL (8.5-10.1); Chloride 106 mmol/L (98-107); EST Glomerular Filtration Rate 113 mL/min (>60); Est Glom Filt Rate - Afr Amer 136 mL/min (>60); Estimated Creatinine Clearance 158.68 ml/min; Glucose 114 mg/dL (74-106); Potassium 4.1 mmol/L (3.5-5.1); Sodium Level 138 mmol/L (136-145)
[2019-03-20] MEDS: glipiZIDE XL 5 MG Tablet PO (08:49)
[2019-03-20 10:15] VITALS: BP 129/66; PULSE 87; RESP 16; TEMP 36.7; O2SAT 95
[2019-03-20] MEDS: Enoxaparin 40 MG/0.4 ML Syringe SC (10:17)
[2019-03-20] MEDS: Lisinopril 10 MG Tablet PO (10:17)
--- NOTE | 2019-03-20 10:28 | NURSING ---
Dressing is to remain in place so was not removed at this time. pt will be following up with Dr Brooks.
[2019-03-20 11:25] LABS: Bedside Glucose 117 mg/dL (70-110)
--- NOTE | 2019-03-20 12:55 | PN.ID_ITS ---
Patient Problems: Active and Suspected Problems Cellulitis of left upper extremity (Acute) Septic olecranon bursitis of left elbow (Acute) Sepsis (Acute) Hyperglycemia (Acute) Subjective: Patient overall clinically stable had an uneventful night. No fevers. Tolerating Ancef well. Objective: Alert does not appear toxic left arm postop dressings are in place. He does have dermatophyte rash in each of his armpits. Heart exam S1-S2 no murmurs - Physical Exam Vitals/I&O's: Vital Signs Temp Pulse Resp BP Pulse Ox 98.0 F 87 16 129/66 H 95 03/20/19 10:15 03/20/19 10:15 03/20/19 10:15 03/20/19 10:15 03/20/19 10:15 Oxygen Flow Rate (L/min) 1.5 Oxygen Delivery Method Room Air Weight: 126.552 kg Body Mass Index (BMI) 32.2 Intake and Output for Last 24 Hours 03/18/19 03/19/19 03/20/19 23:59 23:59 23:59 Intake Total 1408 / 1408 1680.00 / 1980.00 1053.33 / 1053.33 Output Total 1600 / 1600 Balance 1408 / 1408 80.00 / 380.00 1053.33 / 1053.33 Microbiology Past 72 Hours 03/19/19 Unknown Wound Drainage - Aerobic & Anaerobic Swabs Gram Stain - Final 03/19/19 Unknown Wound Drainage - Aerobic & Anaerobic Swabs Wound Culture - Preliminary Staphylococcus aureus 03/16/19 11:00 Wound Abcess - Elbow Gram Stain - Final 03/16/19 11:00 Wound Abcess - Elbow Wound Culture - Final Staphylococcus aureus 03/16/19 11:00 Wound Abcess - Elbow Anaerobic Culture - Final No anaerobic bacteria isolated. 03/16/19 11:10 Blood Culture (Wb) - Right Hand Blood Culture - Preliminary No growth in 48 hours. 03/16/19 11:15 Blood Culture (Wb) - Left Hand Blood Culture - Preliminary No growth in 48 hours. Laboratory Results 03/19/19 17:25: POC Glucose 118 H 03/19/19 23:01: POC Glucose 100 03/20/19 08:00: POC Glucose 116 H 03/20/19 08:25: WBC 13.2 H, RBC 4.76, Hgb 14.6, Hct 42.1, MCV 88.4, MCH 30.7, MCHC 34.7, RDW Std Deviation 38.7, RDW Coeff of Luan 11.9, Plt Count 230, MPV 8.5, Immature Gran % (Auto) 0.600, Neut % (Auto) 79.0 H, Lymph % (Auto) 15.1 L, [place] % (Auto) 5.0, Eos % (Auto) 0.1, Baso % (Auto) 0.2, Absolute Neuts (auto) 10.4 H, Absolute Lymphs (auto) 1.99, Nucleated RBC % 0 03/20/19 08:25: Sodium 138, Potassium 4.1, Chloride 106, Carbon Dioxide 27.0, Anion Gap 5, BUN 11, Creatinine 0.80, Estim Creat Clear Calc 158.68, Est GFR (MDRD) Af Amer 136, Est GFR (MDRD) Non-Af 113, BUN/Creatinine Ratio 13.7, Glucose 114 H, Calcium 8.8 03/20/19 11:14: POC Glucose 117 H Current Medications Acetaminophen (Tylenol) 650 mg PO Q6H PRN PRN PRN Reason: Pain Score 1-3/Temp > 100.7 F Al Hydroxide/Mg Hydroxide (Mylanta Ii) 30 ml PO Q6H PRN PRN PRN Reason: Gastric Burning Albuterol Sulfate (Ventolin Aerosols) 2.5 mg INHALATION Q2H PRN PRN PRN Reason: Shortness of Breath/Wheezing Clonidine (Catapres) 0.1 mg PO Q6H PRN PRN PRN Reason: SBP > 160 Last Admin: 03/17/19 22:41 Dose: 0.1 mg Documented by: Dextrose (D50w Syringe) 0 gm IV X1 PRN; Protocol PRN Reason: Hypoglycemia Enoxaparin Sodium (Lovenox) 40 mg SC DAILY [facility] Last Admin: 03/20/19 10:17 Dose: 40 mg Documented by: [facility]) [facility] Last Admin: 03/20/19 08:49 Dose: 5 mg Documented by: Glucagon () 1 mg IM .X1 PRN PRN Reason: Hypoglycemia Hydromorphone HCl (Dilaudid Inj) 1 mg IV Q4H PRN PRN PRN Reason: Pain Score 6-10/10 Sodium Chloride () 250 mls @ 15 mls/hr IV .[id number] PRN PRN Reason: Saline Flush Cefazolin Sodium 2 gm/ Sodium (Chloride) 110 mls @ 150 mls/hr IV Q8 [facility] Last Infusion: 03/20/19 06:08 Dose: Infused Documented by: Lactated Ringer's () 1,000 mls @ 100 mls/hr IV .Q10H [facility] Last Infusion: 03/20/19 06:08 Dose: 100 mls/hr Documented by: Ibuprofen (Motrin) 400 mg PO Q4H PRN PRN PRN Reason: Pain Score 1-3/Temp > 100.7 F Last Admin: 03/19/19 17:30 Dose: 400 mg Documented by: Insulin Human Lispro (Humalog Kwikpen (Bkc)) 0 unit SC BIDCM [facility]; Protocol Last Admin: 03/20/19 08:50 Dose: Not Given Documented by: Lisinopril (Zestril) 10 mg PO DAILY [facility] Last Admin: 03/20/19 10:17 Dose: 10 mg Documented by: Melatonin (Melatonin) 6 mg PO X1 [facility] Last Admin: 03/19/19 21:01 Dose: Not Given Documented by: Ondansetron HCl (Zofran) 4 mg IV Q8H PRN PRN PRN Reason: NAUSEA/VOMITING Last Admin: 03/19/19 09:44 Dose: 4 mg Documented by: Oxycodone HCl (Oxyir) 5 mg PO Q4H PRN PRN PRN Reason: Pain Score 4-5/10 Last Admin: 03/20/19 07:18 Dose: 5 mg Documented by: Senna/Docusate Sodium (Senokot-S, Jelena-Colace) 2 tablet PO BID PRN PRN PRN Reason: Constipation Sodium Chloride () 10 - 40 ml IV UD PRN PRN Reason: SALINE FLUSH Last Admin: 03/19/19 05:21 Dose: 10 ml Documented by: Medical Necessity - Tobacco Use Smoking Status: Former smoker Tobacco Use: Cigars, Vapor Route of nutrition/ use of supplements: [] Nutritional Intake: [] IV Site: [] Patel Catheter: [] - Assessment/Plan Septic bursitis of the left olecranon bursa with MSSA. Status post surgical I&D. Okay to go home on Keflex 500 mg p.o. 4 times daily for 14 days I did write the prescription. Also wrote a prescription for Clotrimazole cream to place on each armpit twice a day
--- NOTE | 2019-03-20 13:27 | PCM.PN.ORT ---
Patient Problems: Active and Suspected Problems Cellulitis of left upper extremity (Acute) Septic olecranon bursitis of left elbow (Acute) Sepsis (Acute) Hyperglycemia (Acute) Subjective: Doing well pain controlled denies fevers feels his arm is getting better feels his swelling in his hand is better Objective: Cultures and sensitivities posted - Physical Exam Vitals/I&O's: Vital Signs Temp Pulse Resp BP Pulse Ox 98.0 F 87 16 129/66 H 95 03/20/19 10:15 03/20/19 10:15 03/20/19 10:15 03/20/19 10:15 03/20/19 10:15 Oxygen Flow Rate (L/min) 1.5 Oxygen Delivery Method Room Air Weight: 279 lb Body Mass Index (BMI) 32.2 Intake and Output for Last 24 Hours 03/18/19 03/19/19 03/20/19 23:59 23:59 23:59 Intake Total 1408 / 1408 1680.00 / 1980.00 1503.33 / 1503.33 Output Total 1600 / 1600 Balance 1408 / 1408 80.00 / 380.00 1503.33 / 1503.33 General: Alert, Oriented x3, Cooperative, No apparent distress Extremities: - - Compartment soft neurovascular intact dressing clean dry and intact Microbiology Past 72 Hours 03/19/19 Unknown Wound Drainage - Aerobic & Anaerobic Swabs Gram Stain - Final 03/19/19 Unknown Wound Drainage - Aerobic & Anaerobic Swabs Wound Culture - Preliminary Staphylococcus aureus 03/16/19 11:00 Wound Abcess - Elbow Gram Stain - Final 03/16/19 11:00 Wound Abcess - Elbow Wound Culture - Final Staphylococcus aureus 03/16/19 11:00 Wound Abcess - Elbow Anaerobic Culture - Final No anaerobic bacteria isolated. 03/16/19 11:10 Blood Culture (Wb) - Right Hand Blood Culture - Preliminary No growth in 48 hours. 03/16/19 11:15 Blood Culture (Wb) - Left Hand Blood Culture - Preliminary No growth in 48 hours. Laboratory Results 03/19/19 17:25: POC Glucose 118 H 03/19/19 23:01: POC Glucose 100 03/20/19 08:00: POC Glucose 116 H 03/20/19 08:25: WBC 13.2 H, RBC 4.76, Hgb 14.6, Hct 42.1, MCV 88.4, MCH 30.7, MCHC 34.7, RDW Std Deviation 38.7, RDW Coeff of Luan 11.9, Plt Count 230, MPV 8.5, Immature Gran % (Auto) 0.600, Neut % (Auto) 79.0 H, Lymph % (Auto) 15.1 L, [place] % (Auto) 5.0, Eos % (Auto) 0.1, Baso % (Auto) 0.2, Absolute Neuts (auto) 10.4 H, Absolute Lymphs (auto) 1.99, Nucleated RBC % 0 03/20/19 08:25: Sodium 138, Potassium 4.1, Chloride 106, Carbon Dioxide 27.0, Anion Gap 5, BUN 11, Creatinine 0.80, Estim Creat Clear Calc 158.68, Est GFR (MDRD) Af Amer 136, Est GFR (MDRD) Non-Af 113, BUN/Creatinine Ratio 13.7, Glucose 114 H, Calcium 8.8 03/20/19 11:14: POC Glucose 117 H Current Medications Acetaminophen (Tylenol) 650 mg PO Q6H PRN PRN PRN Reason: Pain Score 1-3/Temp > 100.7 F Al Hydroxide/Mg Hydroxide (Mylanta Ii) 30 ml PO Q6H PRN PRN PRN Reason: Gastric Burning Albuterol Sulfate (Ventolin Aerosols) 2.5 mg INHALATION Q2H PRN PRN PRN Reason: Shortness of Breath/Wheezing Clonidine (Catapres) 0.1 mg PO Q6H PRN PRN PRN Reason: SBP > 160 Last Admin: 03/17/19 22:41 Dose: 0.1 mg Documented by: Dextrose (D50w Syringe) 0 gm IV X1 PRN; Protocol PRN Reason: Hypoglycemia Enoxaparin Sodium (Lovenox) 40 mg SC DAILY [facility] Last Admin: 03/20/19 10:17 Dose: 40 mg Documented by: Glip[facility] ([facility]l) [facility] Last Admin: 03/20/19 08:49 Dose: 5 mg Documented by: Glucagon () 1 mg IM .X1 PRN PRN Reason: Hypoglycemia Hydromorphone HCl (Dilaudid Inj) 1 mg IV Q4H PRN PRN PRN Reason: Pain Score 6-10/10 Sodium Chloride () 250 mls @ 15 mls/hr IV .[id number] PRN PRN Reason: Saline Flush Cefazolin Sodium 2 gm/ Sodium (Chloride) 110 mls @ 150 mls/hr IV Q8 [facility] Last Infusion: 03/20/19 06:08 Dose: Infused Documented by: Lactated Ringer's () 1,000 mls @ 100 mls/hr IV .Q10H [facility] Last Infusion: 03/20/19 06:08 Dose: 100 mls/hr Documented by: Ibuprofen (Motrin) 400 mg PO Q4H PRN PRN PRN Reason: Pain Score 1-3/Temp > 100.7 F Last Admin: 03/19/19 17:30 Dose: 400 mg Documented by: Insulin Human Lispro (Humalog Kwikpen (Bkc)) 0 unit SC BIDCM [facility]; Protocol Last Admin: 03/20/19 08:50 Dose: Not Given Documented by: Lisinopril (Zestril) 10 mg PO DAILY [facility] Last Admin: 03/20/19 10:17 Dose: 10 mg Documented by: Melatonin (Melatonin) 6 mg PO X1 [facility] Last Admin: 03/19/19 21:01 Dose: Not Given Documented by: Ondansetron HCl (Zofran) 4 mg IV Q8H PRN PRN PRN Reason: NAUSEA/VOMITING Last Admin: 03/19/19 09:44 Dose: 4 mg Documented by: Oxycodone HCl (Oxyir) 5 mg PO Q4H PRN PRN PRN Reason: Pain Score 4-5/10 Last Admin: 03/20/19 07:18 Dose: 5 mg Documented by: Senna/Docusate Sodium (Senokot-S, Jelena-Colace) 2 tablet PO BID PRN PRN PRN Reason: Constipation Sodium Chloride () 10 - 40 ml IV UD PRN PRN Reason: SALINE FLUSH Last Admin: 03/19/19 05:21 Dose: 10 ml Documented by: Medical Necessity - Tobacco Use Smoking Status: Former smoker Tobacco Use: Cigars, Vapor Assessment/Plan All Active Problems Psoriasis (Acute) Cellulitis of left upper extremity (Acute) Septic olecranon bursitis of left elbow (Acute) Sepsis (Acute) Hyperglycemia (Acute) Stop day #1 status post I&D left septic bursitis of elbow Patient is doing well Will have patient leave dressing on 72 hours postop then may remove and begin showering not to submerge this was reviewed with patient Patient was given prescription for oxycodone by admitting physician may substitute Tylenol and NSAID when able Patient will follow-up 03/26/19 for wound check was reviewed with patient Limit weightbearing to 2 pounds per encourage finger wrist and elbow shoulder range of motion immediately Call with any questions or concerns
[2019-03-20 14:09] VITALS: BP 160/81; PULSE 88; RESP 18; TEMP 36.8; O2SAT 96
== END 2019-03-20 15:35 | disposition home or self-care (01) | DRG 854 ==
LOC: ED 11:44 → MS3 12:32
PROVIDERS: Orthopaedic Surgery; Admitting Provider Internal Medicine; Emergency Provider Emergency Medicine; Family Provider Family Medicine; PCP Family Medicine; Referring Provider Internal Medicine; Visit Provider Internal Medicine
PROC: 0MB40ZZ Excision of Left Elbow Bursa and Ligament, Open Approach (ICD-10-PCS; principal; 2019-03-19 07:00)
DX: A41.9 Sepsis, unspecified organism (principal); L03.114 Cellulitis of left upper limb; L02.414 Cutaneous abscess of left upper limb; M71.122 Other infective bursitis, left elbow; L40.9 Psoriasis, unspecified; I10 Essential (primary) hypertension; E11.65 Type 2 diabetes mellitus with hyperglycemia; B95.61 Methicillin susceptible Staphylococcus aureus infection as the cause of diseases classified elsewhere; T38.0X5A Adverse effect of glucocorticoids and synthetic analogues, initial encounter; Z79.899 Other long term (current) drug therapy; Z87.891 Personal history of nicotine dependence
CPT/HCPCS: 10060; 36415; 80048; 80061; 80202; 82962; 83036; 83605; 85025; 87040; 87070; 87075; 87077; 87186; 87205; 87640; 87641; 93005; 97110; 97166; 97530; 99284; 99406; J7030; J7040; J7120; A4216; J2405

== ENCOUNTER → 2019-04-04 10:36 | Outpatient (CLI) | payer OTHER, SELFPAY ==
[2019-04-02 15:38] VITALS: BMI 32.2
[2019-04-04 13:04] LABS: COTININE Drug Screen Negative (<200 ng/mL)
== END ==
PROVIDERS: Family Provider Family Medicine; PCP Family Medicine; Visit Provider Family Medicine
DX: Z00.00 Encounter for general adult medical examination without abnormal findings (principal)

== ENCOUNTER → 2019-05-03 08:39 | Outpatient (CLI) | payer OTHER, SELFPAY ==
[2019-04-02 15:38] VITALS: BMI 32.2
--- NOTE | 2019-05-03 08:55 | RAD_ITS ---
STUDY: X-RAY - RIGHT KNEE REASON FOR EXAM: Male, 38 years old. TREADMILL INJURY. PAIN MEDIAL TECHNIQUE: 4 view(s) of the knee. COMPARISON: None. FINDINGS: Normal visualized distal femur. Normal visualized proximal tibia and fibula. Normal proximal tibiofibular articulation. Normal medial femorotibial compartment. Normal lateral femorotibial compartment. Normal patellofemoral articulation. The soft tissue structures are unremarkable. There are mild chronic enthesopathic degenerative changes of the patellar tendon. RAD/Knee 4 or More Views IMPRESSION: No acute findings. Electronically Signed: Kari Vazquez, at 17:35 EST Tel , Service support ,
== END ==
PROVIDERS: PCP Family Medicine; Referring Provider Family Medicine; Visit Provider Family Medicine
DX: M25.561 Pain in right knee (principal)
CPT/HCPCS: 73564

== ENCOUNTER → 2019-11-26 15:13 | Outpatient (CLI) | payer OTHER, SELFPAY ==
[2019-04-02 15:38] VITALS: BMI 32.2
[2019-11-29 03:06] LABS: QNTFERON TB Mitogen Value > 10.00 IU/mL (.); QNTFERON TB Nil Value 0.03 IU/mL (.); QNTFERON TB1+ Ag Value 0.04 IU/mL (.); QNTFERON TB2+ Ag Value 0.02 IU/mL (.)
[2019-11-29 07:35] LABS: QNTIFERON TB Positive Criteria Negative (Negative)
== END ==
PROVIDERS: PCP Family Medicine; Referring Provider Dermatology; Visit Provider Dermatology
DX: L40.0 Psoriasis vulgaris (principal)
CPT/HCPCS: 36415; 86480

== ENCOUNTER → 2020-10-22 16:14 | Outpatient (CLI) | payer OTHER, SELFPAY ==
[2019-04-02 15:38] VITALS: BMI 32.2
--- NOTE | 2020-10-22 16:25 | RAD_ITS ---
STUDY: X-RAY - RIGHT CALCANEUS REASON FOR EXAM: Male, 40 years old. ACHILLES INJURY TECHNIQUE: 2 view(s) of the calcaneus were obtained. COMPARISON: None. FINDINGS: Small plantar spur. There is enthesophyte formation of the posterior superior calcaneus at the site of insertion of the Achilles tendon. RAD/Calcaneus min 2 Views IMPRESSION: Calcaneal spurs. Electronically Signed: Jared Cardenas MD at 10:34 EDT , Service support ,
[2020-10-22 17:42] LABS: Absolute Neutrophil Count 7.8 X10^3/uL (2.0-7.7); Basophil# 0.05 X10^3/uL; Basophil% 0.5 % (0-1); Eosinophil# 0.06 X10^3/uL; Eosinophils% 0.6 % (0-5); Hematocrit 48.3 % (40-54); Hemoglobin 16.4 g/dL (13.0-16.5); Lymphocyte % 17.7 % (19-41); Mean Corpuscular Hgb 30.8 pg (27.0-32.0); Mean Corpuscular Volume 90.6 fL (80-94); Monocyte# 0.46 X10^3/uL; Monocyte% 4.5 % (0-10); NRBC Flagged by Analyzer 0 % (0-5); Neutrophil # 7.76 X10^3/uL (2.7-7.7); Neutrophil % 76.3 % (47-70); Platelet Count 203 K/mm3 (150-450); RBC Distribution Width CV 12.6 % (11.6-14.6); RBC Distribution Width SD 41.3 fl (35.1-43.9); Red Blood Count 5.33 M/mm3 (4.6-6.2); White Blood Count 10.2 K/mm3 (4.4-11.0)
[2020-10-22 18:05] LABS: Microalbumin,Random Urine 6.7 mg/L (NO RANGE EST.); Microalbumin:Creatinine Ratio 6.4 mg/g CRE (<30 mg/g CRE)
[2020-10-22 18:33] LABS: ALB/GLOB Ratio 0.9 RATIO (0.9-2.4); AST(SGOT) 37 U/L (15-37); Alanine Aminotransfer ALT/SGPT 73 U/L (16-61); Alkaline Phosphatase 106 U/L (45-117); Anion Gap 9 (5-15); BUN 14 mg/dL (7-18); BUN/Creat Ratio 15.7 RATIO (10-20); Calcium,Total 9.4 mg/dL (8.5-10.1); Chloride 100 mmol/L (98-107); Cholesterol 184 mg/dL (200); Creatinine, Serum 0.89 mg/dL (0.70-1.30); EST Glomerular Filtration Rate 99 mL/min (>60); Est Glom Filt Rate - Afr Amer 120 mL/min (>60); Globulin 4.6 g/dL (2.2-4.2); Glucose 86 mg/dL (74-106); High Density Lipoprotein 25 mg/dL; Potassium 3.7 mmol/L (3.5-5.1); Protein, Total 8.6 g/dL (6.4-8.2); Sodium Level 137 mmol/L (136-145); Triglycerides 406 mg/dL
[2020-10-22 18:52] LABS: Hemoglobin A1c 5.8 % (3.8-5.6)
[2020-10-25 03:07] LABS: QNTFERON TB Mitogen Value > 10.00 IU/mL (.); QNTFERON TB Nil Value 0.01 IU/mL (.); QNTFERON TB1+ Ag Value 0.03 IU/mL (.); QNTFERON TB2+ Ag Value 0.03 IU/mL (.)
[2020-10-25 11:48] LABS: QNTIFERON TB Positive Criteria Negative (Negative)
== END ==
PROVIDERS: PCP Family Medicine; Referring Provider Family Medicine; Visit Provider Family Medicine
DX: Z00.00 Encounter for general adult medical examination without abnormal findings (principal); E11.9 Type 2 diabetes mellitus without complications; M79.671 Pain in right foot; L40.0 Psoriasis vulgaris; Z79.899 Other long term (current) drug therapy
CPT/HCPCS: 36415; 73650; 80053; 80061; 82043; 82570; 83036; 85025; 86480

== ENCOUNTER 2021-07-07 16:02 | Outpatient (CLI) | payer OTHER, SELFPAY ==
--- NOTE | 2021-07-07 16:03 | MRI_ITS ---
STUDY: MRI LUMBAR SPINE WITHOUT CONTRAST ENHANCEMENT OF 1644 HOURS ON 07/07/2021 REASON FOR EXAM: 40-year-old male with low back and left buttock''s pain. TECHNIQUE: Standardized fat and water weighted pulse sequences were obtained in the sagittal and axial planes. COMPARISON: None FINDINGS: Straightening of the lumbar spine may be indicative of muscle spasm. No vertebral body fractures, subluxations or intervertebral disc space narrowing. No osseous lytic, sclerotic or mass lesions involving the lumbar spine. Surrounding soft tissues are normal. Normal enhancement abdominal aorta without evidence of dissection or aneurysm. Mild central intervertebral disc protrusion at the L4-5 level with approximately 20% effacement of the spinal canal at that level. There is no evidence of other extradural, intradural, or intramedullary lesions. The conus and cauda equina have a normal appearance. There is no evidence of osseous spinal stenosis. MRI/Spine Lumbar (Routine) IMPRESSION: 1. Mild central intervertebral disc protrusion at the L4-5 level with approximately 20% anterior effacement of the spinal canal at that level. 2. No evidence of other extradural, intradural, intramedullary lesions. 3. Normal-appearing conus and cauda equina. 4. No osseous lumbar spinal stenosis. 5. Straightening of the lumbar spine and may be indicative of muscle spasm. 6. No vertebral body fractures, subluxations or intervertebral disc space narrowing. 7. No osseous lytic, sclerotic or mass lesions involving lumbosacral spine. Normal surrounding soft tissues. 8. Normal appearing abdominal aorta without evidence of dissection or aneurysm. Electronically Signed: Angel Farrell MD at 21:58 EDT ,
== END 2021-07-07 23:59 | disposition home or self-care (01) ==
LOC: MRI 16:03
PROVIDERS: PCP Family Medicine; Visit Provider Orthopaedic Surgery
DX: M51.26 Other intervertebral disc displacement, lumbar region (principal); M51.27 Other intervertebral disc displacement, lumbosacral region
CPT/HCPCS: 72148

== ENCOUNTER → 2021-12-16 | Outpatient (CLI) | payer OTHER, SELFPAY ==
[2021-12-19 13:07] LABS: QNTFERON TB Mitogen Value > 10.00 IU/mL (.); QNTFERON TB Nil Value 0.01 IU/mL (.); QNTFERON TB1+ Ag Value 0.01 IU/mL (.); QNTFERON TB2+ Ag Value 0.01 IU/mL (.)
[2021-12-20 14:28] LABS: QNTIFERON TB Positive Criteria Negative (Negative)
== END | disposition home or self-care (01) ==
LOC: MTLAB 16:10
PROVIDERS: PCP Family Medicine; Referring Provider Dermatology; Visit Provider Dermatology
DX: L40.0 Psoriasis vulgaris (principal); Z79.899 Other long term (current) drug therapy
CPT/HCPCS: 36415; 86480

== ENCOUNTER 2022-02-05 06:26 | Day surgery (SDC) | payer OTHER, SELFPAY ==
[2022-02-05 07:04] VITALS: BP 149/93; PULSE 96; RESP 18; TEMP 36.8; O2SAT 100; BMI 32.6
[2022-02-05] MEDS: Lactated Ringers 1,000 ML 15 ML IV (07:11)
--- NOTE | 2022-02-05 07:19 | PCM.HP.BLA ---
History and Physical Date of Admission: 02/05/22 Intake Vital Signs ? 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 Required: No Is patient in pain?: No Allergies No Known Allergies Allergy (Verified 12/28/21 07:53) Medications secukinumab 150 mg/mL subcutaneous pen injector 300 mg SQ Check with primary doctor 03/16/19 [History Confirmed 12/28/21] lisinopril 20 mg tablet 20 mg PO DAILY #30 tabs 03/20/19 [Rx Confirmed 12/28/21] metformin 500 mg tablet 500 mg PO BID #60 tabs 03/20/19 [Rx Confirmed 12/28/21] cyclobenzaprine 10 mg tablet 10 mg PO 06/17/21 [History Confirmed 12/28/21] hydrocodone-acetaminophen 5-325mg 5mg-325mg 1 tab PO 06/17/21 [History Confirmed 12/28/21] ibuprofen 600 mg tablet 600 mg PO 06/17/21 [History Confirmed 12/28/21] ixekizumab 80 mg/mL subcutaneous auto-injector 80 mg subcut 06/17/21 [History Confirmed 12/28/21] PFSH Medical History?(Updated 12/28/21 @ 09:[address] Behzad Cates MD) Diabetes HTN (hypertension) Surgical History?(Updated 12/28/21 @ 07:51 by Jade Barfield) H/O elbow surgery S/P surgical removal of pilonidal cyst Family History?(Updated 12/28/21 @ 07:52 by Jade Barfield) Mother Arthritis Hypertension Thyroid disorderFather Hypertension Social History? household members:? family Smoking Status:? Former smoker alcohol intake:? never HPI HPI HPI: 41-year-old male with family history of colon polyps here for colonoscopy.? Patient denies any abdominal pain although he does have blood when he wipes.? He says this is likely due to hemorrhoids.? He also has IBS and has frequent diarrhea.? Patient has never had a colonoscopy in the past.? Patient has family history of colon polyps in his father. ROS General General: No weight change, appetite, fatigue, colon cancer, breast cancer or weakness HEENT HEENT: No difficulty swallowing, eye injury, eye surgery, swollen glands or hoarseness Endo Endocrine: Yes diabetes mellitus; No thyroid disease, thyroid cancer, Hair loss, heat intolerance or cold intolerance Skin Skin: No rash or changing moles Additional Details: psoriasis Breast Breast: No left breast lump, right breast lump, nipple discharge, breast pain, abnormal mammogram, abnormal US or breast enlargement Musc Musculoskeletal: Yes back problems; No arthritis, rheumatoid arthritis, gout or joint pain Cardio Cardiovascular: Yes high blood pressure; No murmur, pacemaker, heart disease, atrial fibrillation, heart attack, heart stent, palpitations, shortness of breat with exertion or chest pain Psych Psychiatric: No depression, anxiety or hearing voices Resp Respiratory: No shortness of breath, Yes sleep apnea, No cough, No COPD, No asthma, No emphysema and No wheezing Gastro Gastrointestinal: No abdominal pain, No nausea or vomiting, No diarrhea, No constipation, No blood in stool, No acid reflux, No hemorrhoids, No ulcers, No gallbladder problem and No black,tarry stools Marlon Hematologic: No blood thinners, No blood disorders, No bleeding, No anemia and No blood clots Neuro Neurologic: No system reviewed and no additional complaints, except as documented, No as per HPI, No abnormal gait, No abnormal hearing, No abnormal movements, No abnormal speech, No behavioral changes, No burning sensations, No confusion, No convulsions, No disequilibrium, No dizziness, No localized weakness, No frequent falls, No headache(s), No lack of coordination, No loss of vision, No memory loss, No numbness, No other visual disturbances, No radicular pain, No restless legs, No sensory deficit, No syncope, No tingling, No tremor(s), No weakness and No other Exam Const General: cooperative Orientation: alert and oriented x3 HENMT Head: normal to inspection Neck Neck: normal visual inspection and full ROM Chest Chest palpation & inspection: normal inspection of the chest Resp Effort & Inspection: normal respiratory effort Auscultation: clear to auscultation bilaterally Cardio Rate: regular rate Rhythm: regular rhythm GI Inspection: non-distended Palpation: soft and nontender Skin General: no rashes or lesions noted Neuro General: patient alert and patient oriented x3 Extrem General: full ROM Psych Appearance: grossly normal Mental Status: mental status grossly normal Assessment and Plan Assessment and Plan (1) Family history of colonic polyps: ?Status:?Acute ?Plan: The patient has family history of colon polyps and would like screening colonoscopy.? I discussed this with him and advised him to check with his insurance company and then I would get him scheduled. I explained endoscopy in detail to the patient.? I explained the risks including but not limited to stroke or heart attack with anesthesia, perforation of the GI tract, bleeding, infection.? I explained that any of these could necessitate further emergency surgery.? The patient understands and all questions were answered sufficiently.? The patient wishes to proceed with procedure. Behzad Cates MD Pager: [facility] [address] [place] [address], [address] [place] [address] Office: I have seen and reexamined the patient and there are no changes
[2022-02-05 07:45] VITALS: BP 123/80; BP 149/93; PULSE 89; RESP 16; TEMP 36.6; O2SAT 96
--- NOTE | 2022-02-05 07:48 | OP.COLON_ITS ---
Patient Name: Salvatore Santana Procedure Date: 02/05/2022 7:19 AM Date of : 1980 Age: 41 Procedure: Colonoscopy Indications: Colon cancer screening in patient at increased risk: Family history of 1st-degree relative with colon polyps before age 60 years Providers: Behzad Cates MD Medicines: Monitored Anesthesia Care Patient Profile: This is a 41 year old male. Refer to note in patient chart for documentation of history and physical. Last Colonoscopy: none. The patient's first colonoscopy is today. Complications: No immediate complications. Procedure: Pre-Anesthesia Assessment: - Prior to the procedure, a History and Physical was performed, and patient medications and allergies were reviewed. The patient's tolerance of previous anesthesia was also reviewed. The risks and benefits of the procedure and the sedation options and risks were discussed with the patient. All questions were answered, and informed consent was obtained. Prior Anticoagulants: The patient has taken no previous anticoagulant or antiplatelet agents. After reviewing the risks and benefits, the patient was deemed in satisfactory condition to undergo the procedure. After I obtained informed consent, the scope was passed under direct vision. Throughout the procedure, the patient's blood pressure, pulse, and oxygen saturations were monitored continuously. The colonoscope was introduced through the anus and advanced to the cecum, identified by appendiceal orifice and ileocecal valve. The colonoscopy was performed without difficulty. The patient tolerated the procedure well. The quality of the bowel preparation was good. Scope In: 7:32:58 AM Scope Withdrawal Time 0 hours 6 minutes 3 seconds Scope Out: 7:42:16 AM Total Procedure Duration Time 0 hours 9 minutes 18 seconds Findings: The entire examined colon appeared normal on direct and retroflexion views. Impression: - The entire examined colon is normal on direct and retroflexion views. - No specimens collected. Recommendation: - Discharge patient to home. - Resume previous diet. - Continue present medications. - Repeat colonoscopy in 5 years for surveillance. Procedure Code(s): --- Professional --- 59631, Colonoscopy, flexible; diagnostic, including collection of specimen(s) by brushing or washing, when performed (separate procedure) Diagnosis Code(s): --- Professional --- Z83.71, Family history of colonic polyps CPT copyright 2017 [employer]. All rights reserved. The codes documented in this report are preliminary and upon manager of case review may be revised to meet current compliance requirements. Behzad Cates MD 02/05/2022 7:47:31 AM This report has been signed electronically. Number of Addenda: 0 Note Initiated On: 02/05/2022 7:19 AM
--- NOTE | 2022-02-05 07:48 | OP.CCLET_ITS ---
02/05/2022 Sina Rodríguez [address] [place] [address] Re : Colonoscopy procedure for Salvatore Santana Dear Dr. Rodríguez This procedure was performed on Saturday, February 05, 2022. My impressions and recommendations are as follows: Impressions : - The entire examined colon is normal on direct and retroflexion views. - No specimens collected. Recommendations : - Discharge patient to home. - Resume previous diet. - Continue present medications. - Repeat colonoscopy in 5 years for surveillance. My findings are described in the full procedure note, which is enclosed. If I can be of further assistance, please feel free to contact me at Doctor phone number(s): , Work: . Sincerely, Behzad Cates MD 02/05/2022 7:47:31 AM This report has been signed electronically.
[2022-02-05 07:50] VITALS: BP 118/75; BP 149/93; PULSE 90; RESP 16; O2SAT 94
[2022-02-05 07:55] VITALS: BP 127/8; BP 149/93; PULSE 89; RESP 16; O2SAT 97
[2022-02-05 08:02] VITALS: BP 125/87; BP 149/93; PULSE 79; RESP 16; TEMP 37.2; O2SAT 96
[2022-02-05 08:04] VITALS: BP 149/93
[2022-02-05 08:55] LABS: Bedside Glucose 109 mg/dL (74-106)
== END 2022-02-05 08:56 | disposition home or self-care (01) ==
LOC: EN 06:26 → AC 06:28
PROVIDERS: PCP Family Medicine; Referring Provider Family Medicine; Visit Provider Surgery
PROC: 0DJD8ZZ Inspection of Lower Intestinal Tract, Via Natural or Artificial Opening Endoscopic (ICD-10-PCS; CPT 45378; principal; 2022-02-05 07:25)
DX: Z12.11 Encounter for screening for malignant neoplasm of colon (principal); K58.0 Irritable bowel syndrome with diarrhea; Z79.84 Long term (current) use of oral hypoglycemic drugs; Z79.899 Other long term (current) drug therapy; Z87.891 Personal history of nicotine dependence; Z83.71 Family history of colonic polyps
CPT/HCPCS: 45378; 82962; J7120; J2405

== ENCOUNTER → 2022-12-06 | Outpatient (CLI) | payer OTHER, SELFPAY ==
[2022-12-06 12:46] LABS: Absolute Lymphocyte Count 1.59 X10^3/uL (0.83-4.51); Basophil# 0.05 X10^3/uL; Basophil% 0.6 % (0-1); Eosinophil# 0.05 X10^3/uL; Eosinophils% 0.6 % (0-5); Hematocrit 45.7 % (40-54); Hemoglobin 15.9 g/dL (13.0-16.5); Lymphocyte # 1.59 X10^3/ul (0.83-4.51); Lymphocyte % 19.4 % (19-41); Mean Corp Hgb Conc 34.8 g/dL (32-36); Mean Corpuscular Hgb 31.7 pg (27.0-32.0); Mean Platelet Vol. 9.5 fl (6.2-12.0); Monocyte# 0.48 X10^3/uL; Monocyte% 5.9 % (0-10); NRBC Flagged by Analyzer 0 % (0-5); Neutrophil # 5.96 X10^3/uL (2.7-7.7); Neutrophil % 72.8 % (47-70); Platelet Count 202 K/mm3 (150-450); RBC Distribution Width CV 12.9 % (11.6-14.6); RBC Distribution Width SD 43.1 fl (35.1-43.9); Red Blood Count 5.02 M/mm3 (4.6-6.2); White Blood Count 8.2 K/mm3 (4.4-11.0)
[2022-12-06 13:35] LABS: Hemoglobin A1c 7.4 % (3.8-5.6)
[2022-12-06 13:52] LABS: ALB/GLOB Ratio 0.8 RATIO (0.9-2.4); AST(SGOT) 43 U/L (15-37); Alanine Aminotransfer ALT/SGPT 69 U/L (16-61); Albumin, Serum 3.7 g/dL (3.2-5.0); Alkaline Phosphatase 143 U/L (45-117); Anion Gap 7 (5-15); BUN 10 mg/dL (7-18); BUN/Creat Ratio 12.4 RATIO (10-20); Calcium,Total 9.5 mg/dL (8.5-10.1); Chloride 105 mmol/L (98-107); Cholesterol 165 mg/dL (200); Creatinine, Serum 0.81 mg/dL (0.70-1.30); EST Glomerular Filtration Rate 110 mL/min (>60); Est Glom Filt Rate - Afr Amer 133 mL/min (>60); Globulin 4.6 g/dL (2.2-4.2); Glucose 163 mg/dL (74-106); High Density Lipoprotein 25 mg/dL; Protein, Total 8.3 g/dL (6.4-8.2); Sodium Level 137 mmol/L (136-145); Triglycerides 428 mg/dL; Uric Acid 6.2 mg/dL (3.5-7.2)
[2022-12-06 14:49] LABS: Microalbumin,Random Urine 39.2 mg/L (NO RANGE EST.); Microalbumin:Creatinine Ratio 29.7 mg/g CRE (<30 mg/g CRE)
[2022-12-08 20:08] LABS: QNTFERON TB Mitogen Value > 10.00 IU/mL (.); QNTFERON TB Nil Value 0.04 IU/mL (.); QNTFERON TB1+ Ag Value 0.06 IU/mL (.); QNTFERON TB2+ Ag Value 0.03 IU/mL (.); QNTIFERON TB Positive Criteria Negative (Negative)
== END | disposition home or self-care (01) ==
LOC: BFHLAB 10:09
PROVIDERS: PCP Family Medicine; Referring Provider Dermatology Pediatric Dermatology; Visit Provider Family Medicine
DX: Z00.00 Encounter for general adult medical examination without abnormal findings (principal); E11.9 Type 2 diabetes mellitus without complications; I10 Essential (primary) hypertension; M10.9 Gout, unspecified
CPT/HCPCS: 36415; 80053; 80061; 82043; 82570; 83036; 84550; 85025; 86480

== ENCOUNTER → 2023-07-01 | Outpatient (CLI) | payer OTHER, SELFPAY ==
--- NOTE | 2023-07-01 16:03 | RAD_ITS ---
EXAM: XR LEFT HIP WITH PELVIS WHEN PERFORMED, 2 OR 3 VIEWS CLINICAL INDICATION: HIP PAIN TECHNIQUE: Two or three views of the left hip with pelvis when performed. COMPARISON: No relevant prior studies available. FINDINGS: BONES/JOINTS: Unremarkable. No displaced fracture. No destructive or sclerotic lesions. Note that overlapping bowel shadows may however obscure fine detail. Sacroiliac joint is unremarkable. No widening of the pubic symphysis. The articular structures are unremarkable. SOFT TISSUES: Unremarkable. No soft tissue swelling or gas. RAD/HIP, UNI W/ Pelvis 2-3 Views IMPRESSION: No evidence of displaced pelvic or hip fracture. Electronically Signed: Tomy Dickson MD at 23:22 EDT ,
== END | disposition home or self-care (01) ==
LOC: MTRAD 15:56
PROVIDERS: PCP Family Medicine; Referring Provider Family Medicine; Visit Provider Family Medicine
DX: M25.552 Pain in left hip (principal)
CPT/HCPCS: 73502

== ENCOUNTER → 2023-10-11 | Outpatient (CLI) | payer OTHER, SELFPAY ==
[2023-10-11] MEDS: Lidocaine 2% (5ml sdv) 5 ML VIAL.MPF INFILT (07:56)
[2023-10-11] MEDS: Lidocaine 1% (5 ml sdv) 5 ML Vial 3 ML INFILT (08:02)
[2023-10-11] MEDS: Triamcinolone Acetonide 40 MG/ML Vial 80 MG INTRAARTIC (08:02)
[2023-10-11] MEDS: Bupivacaine 0.5% PF 10 ML VIAL 5 ML IJ (08:02)
--- NOTE | 2023-10-11 08:36 | PCM.OP.PRO ---
Procedure Report Date of Procedure: 10/11/23 Assessment & Plan Assessment/Plan (1) Other sprain of left hip, initial encounter: PLAN: PROCEDURE: Fluoroscopic Guided left hip injection ORDERING PROVIDER: Nichelle Cisneros PA-C INDICATION: Male, 43 years old. Left hip sprain. FLUOROSCOPY TIME (if supplied): 1 minutes/48 seconds. 62.02 mGy PROVIDER: CHERRIE Pryor PROCEDURE: CONSENT: The risks, benefits, and alternatives to the procedure were explained to the patient. The specific risks of bleeding, infection, and neurovascular injury were detailed and accepted. Witnessed informed consent was obtained. TECHNIQUE: The left hip access site was prepped and draped in sterile fashion. 2% Lidocaine was administered subcutaneously for local anesthesia. A 22-gauge spinal needle was positioned under radiographic fluoroscopic localization. Approximately 2 cc of Isovue 300 instilled for localization purposes. Medication was then injected. MEDICATIONS: 80 mg of triamcinolone and 5 ml of 0.5% bupivacaine, 3 mL of 1% lidocaine. The spinal needle was removed, and a dressing was applied. The patient tolerated the procedure well without any immediate complications. IMPRESSION: Successful fluoroscopic guided left hip injection. Procedures Radiology Radiology Xray Procedures: [id number] Inj Asp major Joint - Hip, Knee Multi Select Codes Radiology Rad Xray Procedures: [id number] Fluoroscopic guidance for needle placement
== END | disposition home or self-care (01) ==
PROVIDERS: PCP Family Medicine
DX: S73.192A Other sprain of left hip, initial encounter (principal); M16.12 Unilateral primary osteoarthritis, left hip; X58.XXXA Exposure to other specified factors, initial encounter
CPT/HCPCS: 20610; 77002

== ENCOUNTER → 2024-05-17 | Outpatient (CLI) | payer OTHER, SELFPAY ==
[2024-05-22 14:08] LABS: QNTFERON TB Mitogen Value > 10.00 IU/mL (.); QNTFERON TB Nil Value 0.01 IU/mL (.); QNTFERON TB1+ Ag Value 0.07 IU/mL (.); QNTFERON TB2+ Ag Value 0.02 IU/mL (.); QNTIFERON TB Positive Criteria Negative (Negative)
== END | disposition home or self-care (01) ==
LOC: MTLAB 15:42
PROVIDERS: PCP Family Medicine; Referring Provider Dermatology; Visit Provider Dermatology
DX: L40.0 Psoriasis vulgaris (principal); Z79.899 Other long term (current) drug therapy
CPT/HCPCS: 36415; 86480

== ENCOUNTER → 2024-06-28 | Outpatient (CLI) | payer OTHER, SELFPAY ==
[2024-06-28 17:18] LABS: Absolute Lymphocyte Count 2.35 X10^3/uL (0.83-4.51); Absolute Neutrophil Count 6.8 X10^3/uL (2.0-7.7); Basophil# 0.04 X10^3/uL; Basophil% 0.4 % (0-1); Eosinophil# 0.36 X10^3/uL; Eosinophils% 3.5 % (0-5); Hemoglobin 15.6 g/dL (13.0-16.5); Lymphocyte # 2.35 X10^3/ul (0.83-4.51); Mean Corp Hgb Conc 35.5 g/dL (32-36); Mean Corpuscular Hgb 30.6 pg (27.0-32.0); Mean Corpuscular Volume 86.4 fL (80-94); Mean Platelet Vol. 9.4 fl (6.2-12.0); Monocyte# 0.61 X10^3/uL; NRBC Flagged by Analyzer 0 % (0-5); Neutrophil % 66.6 % (47-70); Platelet Count 191 K/mm3 (150-450); RBC Distribution Width CV 13.3 % (11.6-14.6); Red Blood Count 5.09 M/mm3 (4.6-6.2); White Blood Count 10.2 K/mm3 (4.4-11.0)
[2024-06-28 19:30] LABS: Microalbumin,Random Urine < 12.0 mg/L (NO RANGE EST.); Microalbumin:Creatinine Ratio UNABLE TO CALCULATE mg/g CRE
[2024-06-28 20:58] LABS: Hemoglobin A1c 5.7 % (<=5.6)
[2024-06-28 21:08] LABS: ALB/GLOB Ratio 1.3 RATIO (0.9-2.4); AST(SGOT) 23 U/L (<=37); Alanine Aminotransfer ALT/SGPT 23 U/L (<=46); Albumin, Serum 4.6 g/dL (3.5-5.0); Alkaline Phosphatase 114 U/L (40-129); Anion Gap 16 (5-15); BUN 17 mg/dL (4-19); BUN/Creat Ratio 22.7 RATIO (10-20); Calcium,Total 9.5 mg/dL (7.6-11.0); Carbon Dioxide 20.9 mmol/L (21.0-32.0); Chloride 100 mmol/L (98-108); Cholesterol 94 mg/dL (<=200); Creatinine, Serum 0.74 mg/dL (0.70-1.20); EST Glomerular Filtration Rate 114 (>60); Globulin 3.5 g/dL (2.2-4.2); Glucose 89 mg/dL (70-99); High Density Lipoprotein 27 mg/dL; Low Density Lipoprotein Calc. 35 mg/dL; PSA,Total - Annual Screen 0.23 ng/mL (0.02-4.00); Protein, Total 8.1 g/dL (5.9-8.4); Sodium Level 137 mmol/L (133-145); Total Bilirubin 0.27 mg/dL (0.00-1.30); Triglycerides 158 mg/dL; Very Low Density Lipoprotein 32 mg/dL (5-40); cholesterol:hdl ratio screen 3.44
[2024-06-29 11:10] LABS: Uric Acid 7.3 mg/dL (3.5-7.2)
== END | disposition home or self-care (01) ==
LOC: BFHLAB 15:53
PROVIDERS: PCP Family Medicine; Visit Provider Family Medicine
DX: Z00.00 Encounter for general adult medical examination without abnormal findings (principal); E11.9 Type 2 diabetes mellitus without complications; M10.9 Gout, unspecified; Z12.5 Encounter for screening for malignant neoplasm of prostate
CPT/HCPCS: 36415; 80053; 80061; 82043; 82570; 83036; 83695; 84153; 84550; 85025; G0103